=== PATIENT | female | born 1965 | race Caucasian/White ===

== ENCOUNTER 2025-01-03 14:19 | Inpatient (IN) | payer OTHER, SELFPAY ==
[2025-01-03] VITALS (24 sets, daily range): BP systolic 100–153; BP diastolic 60–111; PULSE 80–124; RESP 13–29; TEMP 36.6; O2SAT 96–100; BMI 24.7
--- NOTE | ~2025-01-03 | CT_ITS ---
CT cervical spine wo con Ordering provider: Marcel Souza MD History: . FALLING AND HEAD INJURY . Comparison: None. Technique: CT of the cervical spine was performed without contrast. Sagittal and coronal reformatted images were also obtained and reviewed. Automated exposure control and iterative reconstruction avinash hnique were employed. The dose-length product was 478.53 mGy-cm. FINDINGS: VERTEBRAE: Minimal retrolisthesis at the level of C3-C4. Minimal anterolisthesis at the level of C7-T 1. Postoperative changes at the level of C6-C7. Otherwise, No subluxation or acute fracture. The occi pital condyles are intact. DISC SPACES: Narrowing of the disc C4-C5 and C5-C6. Multilevel facet joint disease. Multilevel uncove rtebral joint osteoarthritic changes. Multilevel intervertebral foraminal narrowing. PARASPINOUS SOFT TISSUES: Normal. IMPRESSION: No acute osseous abnormality cervical spine. Multilevel degenerative disc disease. Reviewed, dictated and finalized at location A.
--- NOTE | ~2025-01-03 | MR_ITS ---
MR brain/brain stem wo/w con Ordering provider: Rosa Maria Vela PA-C History: 59 years Female with . seizure activity . Comparison: CT done yesterday. Technique: MRI brain was performed with and without contrast. 14 mL ProHance was given IV. FINDINGS: BONES: Normal. CRANIOCERVICAL JUNCTION: normal. PITUITARY: Normal. MAJOR INTRACRANIAL VESSELS: Normal flow void. OPTIC NERVES AND CRANIAL NERVES VII AND VIII COMPLEXES: Grossly normal. BRAIN PARENCHYMA AND CSF SPACES: Mild nonspecific T2 white matter hyperintensities which are likely related to chronic ischemic small vessel disease. Mild diffuse cortical atrophy. The brainstem and ce rebellum are normal. No acute or chronic intracranial hemorrhage. No extra axial fluid collections. D iffusion weighted and ADC mapping images reveal minimal effusion restriction in the parasagittal area is which may indicate postictal phase.. No midline shift or mass effect. No enhancing lesions seen. PARANASAL SINUSES: Minimal bilateral ethmoid sinus disease. Otherwise, Normal. MASTOIDS: Normal SUPERFICIAL/SURROUNDING SOFT TISSUES: Large left parieto-occipital scalp hematoma. Otherwise, Normal. IMPRESSION: 1. Possible minimal diffusion restriction in the parasagittal area is which may indicate postictal p hase. Clinical correlation advised. 2. No enhancing lesions seen. 3. Large scalp hematoma in the left parieto-occipital area. Reviewed, dictated and finalized at location A. IMPRESSION: 1. Possible minimal diffusion restriction in the parasagittal area is which ma y indicate postictal phase. Clinical correlation advised. 2. No enhancing lesions seen. 3. Large scalp hematoma in the left parieto-occipital area.
--- NOTE | ~2025-01-03 | XR_ITS ---
XR chest 1V portable Ordering provider: Marcel Souza MD History: 59 years Female with . UNRESPONSIVE . Comparison: None. FINDINGS: MEDIASTINUM: The cardiac silhouette is not enlarged. LUNGS: No infiltrates, effusions or pneumothorax. OTHER: No free air under the diaphragm. Degenerative spine. IMPRESSION: No acute cardiopulmonary pathology. Reviewed, dictated and finalized at location A.
--- NOTE | ~2025-01-03 | CT_ITS ---
CT brain wo con Ordering provider: Marcel Souza MD History: 59 years Female with . HEAD INJURY . Comparison: None. Technique: CT of the head without contrast. Radiation reduction technique utilized.The dose-length pr oduct was 681 mGy-cm. FINDINGS: BRAIN PARENCHYMA AND CSF SPACES: Mild leukoaraiosis and diffuse cortical atrophy. Mild atheromatous d isease. No midline shift, mass effect or hemorrhage. The brain parenchyma and CSF spaces are otherwi se normal. VISUALIZED PARANASAL SINUSES: Well aerated. MASTOIDS: Well aerated. BONES: The bones appear intact. SOFT TISSUES: Visualized nasopharynx is normal. Large left occipital scalp hematoma with postoperati ve changes seen. Otherwise, Superficial soft tissues are normal. IMPRESSION: No acute intracranial findings. Large left occipital scalp hematoma. Reviewed, dictated and finalized at location A.
--- NOTE | 2025-01-03 14:16 | ECG_ITS ---
Test Date: 2025-01-03 15:55:30 Measurements Intervals [place] Rate: 100 P: 63 DE: 170 QRS: 64 QRSD: 107 T: 66 QT: 392 QTc: 507 Interpretive Statements SINUS TACHYCARDIA POSSIBLE RIGHT VENTRICULAR CONDUCTION DELAY [RSR (QR) IN V1/V2] LATERAL MYOCARDIAL INFARCTION ,Age indeterminate [40+ ms Q WAVE AND/OR ST/T ABNORMALITY IN I/aVL/V5/V6] No previous ECG available for comparison Electronically Signed On 01-05-2025 14:56:06 CDT by Kavon Lebron M.D.
--- NOTE | 2025-01-03 14:24 | ED_ITS ---
HPI - Altered Mental Status General Chief Complaint: Trauma Stated Complaint: ?postictal History of Present Illness HPI narrative: PATIENT CAME TO THE ED BY AMBULANCE, BYSTANDER MENTIONED THAT PATIENT HAD A FALL FROM STANDING POSITION LANDED BACKWARD HIT THE BACK OF HER HEAD ON THE GROUND, EMT TELLING ME THAT PATIENT HAVE SOME TREMORS OF THE HANDS, OTHERWISE NO CLEAR HISTORY ABOUT WHAT IS GOING ON, NO SIGNIFICANT OTHERS AT THE BEDSIDE. PATIENT RECEIVED 10 MG OF VERSED IV PRIOR TO ARRIVAL, C-COLLAR ON, EYES OPEN, DOES NOT FOLLOW VERBAL COMMANDS, Related Data Home Medications ?Medication ?Instructions ?Recorded ?Confirmed ?Last Taken ?Type desvenlafaxine succinate 100 mg 100 mg PO DAILY 01/03/25 01/03/25 Unknown History tablet,extended release 24 hr hydroxyzine HCl 50 mg tablet 50 mg PO TID PRN anxiety 01/03/25 01/03/25 Unknown History naltrexone 50 mg tablet 50 mg PO DAILY 01/03/25 01/03/25 Unknown History Allergies Allergy/AdvReac Type Severity Reaction Status Date / Time No Known Allergies Allergy Verified 01/03/25 15:07 Review of Systems 2 Review of Systems: ROS unobtainable: Yes unobtainable due to mental status PMFSH Past Medical History Medical History Anxiety and depression Alcoholism in recovery Surgical History Surgical History History of cervical discectomy History of laparoscopy Social History Social History Social History: Surrogate medical decision maker: Eliceo Reyna, daughter ([phone]) Code status: Full code. Smoking status: Never smoker Alcohol intake: former Substance use: never Do You Feel Safe in your Home?: No Lack of Transportation: No Lack of Food: Never True Current Housing: I Have Housing Concerned About Future Housing: No Difficulty Paying Gas/Electric Bills: No Difficulty Paying for Meds: No Currently Unemployed: No Education: High School Diploma/GED Difficulty w/ Childcare or Family Care: No Spiritual care concerns: No Exam 2 Narrative: GENERAL APPEARANCE: WELL-DEVELOPED, WELL-NOURISHED SKIN: NORMAL COLOR HEAD: LARGE OCCIPITAL HEMATOMA, UNABLE TO IDENTIFY THE SOURCE OF BLEEDING AT THIS TIME NO OBVIOUS LACERATION, MOIST BLOOD, SLIGHTLY OOZING EYES: CLEAR CONJUNCTIVA, RIGHT PUPIL LARGER THAN THE LEFT 1 BOTH ARE REACTIVE TO LIGHT BILATERALLY ENT: OROPHARYNX NORMAL, EARS NORMAL, NOSE NORMAL NECK: C-COLLAR ON CHEST AND RESPIRATORY: AIRWAY PATENT, NO RESPIRATORY DISTRESS, NO ACCESSORY MUSCLE USE HEART: REGULAR RATE/RHYTHM ABDOMEN: SOFT, NONTENDER, NO ORGANOMEGALY, QUIET BOWEL SOUNDS VASCULAR: NORMAL PERIPHERAL PULSES, NORMAL CAPILLARY REFILL. MUSCULOSKELETAL: DOES NOT FOLLOW VERBAL COMMANDS NEUROLOGIC: EYES OPEN, NOT RESPONDING VERBAL COMMANDS Course Vital Signs Vital signs: Vital Signs Pulse Rate 119 H 01/03/25 14:16 Respiratory Rate 20 01/03/25 14:16 Blood Pressure 153/108 H 01/03/25 14:16 Pulse Oximetry 96 01/03/25 14:16 Temperature 36.2 C L 01/06/25 21:34 Pulse Rate 77 01/06/25 21:34 Respiratory Rate 14 01/06/25 21:34 Blood Pressure 137/78 01/06/25 21:34 Pulse Oximetry 98 01/06/25 21:34 Oxygen Delivery Room Air 01/06/25 08:00 Fraction of Inspired Oxygen 21 01/05/25 20:00 Procedures Laceration Laceration 1: Date: 01/03/25 Site: scalp Size (cm): 3 Description: irregular Depth: simple, single layer Local Anesthetic: lidocaine 1% and with epi Amount of anesthesia used (mL): 10 Pre-repair: wound explored, minor debridement and other (8 X 8 CM LARGE HEMATOMA, EVACUATED, LARGE BLOOD CLOTS, SCALP ACHIEVED TO IDENTIFY THE SOURCE OF BLEEDING) ====== Skin Level ====== Skin layer closed with: nylon Size (cm): 4-0 Number of sutures: 3 Technique: simple, interrupted ====== Subcutaneous Layer ====== ====== Muscle Layer ====== ====== Tendon Layer ====== MDM - Altered Mental Status MDM Narrative Medical decision making narrative: PATIENT CAME TO THE ED BY AMBULANCE WITH A FALL, UNRESPONSIVE, OCCIPITAL BLEED AND HEMATOMA VITAL SIGN BLOOD PRESSURE 153/108, HEART RATE 119, OTHERWISE WITHIN NORMAL LIMIT PHYSICAL EXAMINATION SHOWING UNRESPONSIVE PATIENT, EYES OPEN, DOES NOT FOLLOW VERBAL COMMANDS. LARGE OCCIPITAL HEMATOMA WITH POSSIBLE LACERATION BLOOD WORKUP TODAY INCLUDES CBC, CMP,, TROPONIN, CPK SHOWED WBC 11.6, POTASSIUM 3.2, OTHERWISE INSIGNIFICANT URINALYSIS SHOWED NO EVIDENCE OF INFECTION URINE DRUG SCREEN POSITIVE FOR OPIATES AND BENZODIAZEPINES LATER PATIENT BECAME AWAKE, ALERT ORIENTED X4, IS TELLING ME THAT SHE WAS GOING TO WHILE GREEN LOOKING AT HER IPHONE AND THEN DOES NOT REMEMBER WHAT HAPPENED, WAKING UP AT THE EMERGENCY ROOM. PATIENT DENIES ANY SYMPTOMS EXCEPT HEADACHE. PATIENT IS TELLING ME THAT SHE HAD HISTORY OF ALCOHOL ABUSE YEARS AGO, STARTED DRINKING SOCIALLY 2 WEEKS AGO. DIAGNOSIS SYNCOPE OF UNKNOWN ETIOLOGY, SEIZURE IS A POSSIBILITY, OCCIPITAL HEMATOMA/LACERATION, HYPOKALEMIA, DRUG ABUSE. ADMIT TO MED TELE, HOSPITALIST Differential Diagnosis Differential diagnosis: Likely other ( ABOVE) Medical Records Attestation: I reviewed the patient's medical records. Lab Data Attestation: I reviewed the patient's lab results. 01/05/25 05:24 01/05/25 05:24 Labs: Lab Results 01/03/25 01/03/25 01/03/25 Range/Units 15:37 16:04 17:49 WBC 11.6 H (4.5-10.0) K/mm3 RBC 3.69 L (4.2-5.4) M/mm3 Hgb 11.2 L (12.0-15.0) g/dL Hct 34.2 L (37.0-47.0) % MCV 92.7 (80-100) fl MCH 30.4 (26-34) pg MCHC 32.7 (32-36) g/dl RDW 14.0 (11.5-14.5) % Plt Count 217 (150-375) k/mm3 MPV 9.7 (7.4-10.4) fl Immature Gran % (Auto) 0.3 (0-0.5) % Neut % (Auto) 72.7 (45.5-73.1) % Lymph % (Auto) 20.2 (18.3-44.2) % [place] % (Auto) 6.0 (2.6-8.5) % Eos % (Auto) 0.5 (0-4.4) % Baso % (Auto) 0.3 (0.2-1.2) % Lymph # (Auto) 2.34 (0.9-3.2) K/mm3 [place]ie # (Auto) 0.7 H (0.1-0.6) K/mm3 Eos # (Auto) 0.1 (0-0.3) K/mm3 Baso # (Auto) 0.0 (0.0-0.1) K/mm3 Abs Immat Gran (auto) 0.04 H (0.00-0.031) K/mm3 Absolute Neuts (auto) 8.4 H (1.3-6.7) K/mm3 Absolute Nucleated RBC 0.000 (0.0-0.012) K/mm3 Nucleated RBC % 0.0 (0.0-0.2) % Absolute Retic (0.02-0.10) 10^6/uL Percent Retic (0.7-4.3) % Immature Retic Fraction (3.0-15.9) % Retic Hgb Content (28.2-36.6) pg Haptoglobin (43-212) mg/dL PT 13.6 (11.1-14.7) Seconds INR 1.0 APTT 25.7 (22.3-36.8) Seconds Sodium 135 L (137-145) mmol/L Potassium 3.2 L (3.4-5.0) mmol/L Chloride 101 (98-107) mmol/L Carbon Dioxide 24 (22-30) mmol/L Anion Gap 10 (4-12) mmol/L BUN 12 (7-17) mg/dL Creatinine 0.63 L (0.7-1.0) mg/dL Estim Creat Clear Calc 79 ml/min Estimated GFR > 60 (59 - ) Glucose 110 (65-110) mg/dL Calcium 9.2 (8.4-10.2) mg/dL Magnesium (1.6-2.3) mg/dL Iron (37-170) ug/dL TIBC (261-462) ug/dL % Saturation (20-50) % Transferrin (206-381) mg/dL Ferritin (11.1-264) ng/mL Total Bilirubin 0.6 (0.2-1.3) mg/dL Direct Bilirubin (0-0.3) mg/dL AST 34 (14-36) U/L ALT 20 (6-35) U/L Alkaline Phosphatase 71 (38-126) U/L Ammonia Cancelled < 9 L Lactate Dehydrogenase (120-246) U/L Total Creatine Kinase 67 (30-135) U/L Troponin I < 0.012 (0.000-0.034) ng/mL Total Protein 7.0 (6.3-8.2) g/dL Albumin 4.4 (3.5-5.1) g/dL Vitamin B1 Vitamin B6 Vitamin B12 (239-931) pg/mL Vitamin D 25-Hydroxy ng/mL Folate (2.76->20) ng/mL TSH 2.390 (0.465-4.680) uIU/mL TSH (Reflex) (0.465-4.68) uIU/mL Urine Color Yellow (Yellow) Urine Appearance Clear (Clear) Urine pH 5.5 (5.0-9.0) Ur Specific [place] 1.022 (1.001-1.035) Urine Protein 2+ H (Negative) mg/dL Urine Glucose (UA) Negative (Negative) mg/dL Urine Ketones Trace H (Negative) mg/dL Ur Blood (Man) Negative (Negative) Urine Nitrate Negative (Negative) Urine Bilirubin Negative (Negative) Urine Urobilinogen 0.2 (<2.0) mg/dL Add Ur Microanalysis Reviewed Leukocyte Esterase Rfl Negative (Negative) NARA/UL Urine RBC 0-2 (0-2) /hpf Urine WBC 0-5 (0-3) /hpf Ur Squamous Epith Cells None seen (Few) /hpf Urine Bacteria None seen /hpf Urine Casts 6-10 Hyaline Casts Present (None) /lpf Urine Mucus Present /lpf Urine Opiates Screen Positive A (Negative) Urine Methadone Screen Negative (Negative) Ur Barbiturates Screen Negative (Negative) Ur Phencyclidine Scrn Negative (Negative) Ur Amphetamine Screen Negative (Negative) U Benzodiazepines Scrn Positive A (Negative) Urine Cocaine Screen Negative (Negative) U Cannabinoids Screen Negative (Negative) Ethyl Alcohol < 10 (<10) mg/dL RUPERTO, IgG Interpret RUPERTO, Poly Interpret RUPERTO, Complement Interp 01/04/25 01/04/25 01/04/25 Range/Units 06:37 17:09 17:10 WBC 7.0 (4.5-10.0) K/mm3 RBC 2.87 L (4.2-5.4) M/mm3 Hgb 8.8 L (12.0-15.0) g/dL Hct 27.6 L (37.0-47.0) % MCV 96.2 (80-100) fl MCH 30.7 (26-34) pg MCHC 31.9 L (32-36) g/dl RDW 14.5 (11.5-14.5) % Plt Count 184 (150-375) k/mm3 MPV 10.4 (7.4-10.4) fl Immature Gran % (Auto) (0-0.5) % Neut % (Auto) (45.5-73.1) % Lymph % (Auto) (18.3-44.2) % [place] % (Auto) (2.6-8.5) % Eos % (Auto) (0-4.4) % Baso % (Auto) (0.2-1.2) % Lymph # (Auto) (0.9-3.2) K/mm3 [place] # (Auto) (0.1-0.6) K/mm3 Eos # (Auto) (0-0.3) K/mm3 Baso # (Auto) (0.0-0.1) K/mm3 Abs Immat Gran (auto) (0.00-0.031) K/mm3 Absolute Neuts (auto) (1.3-6.7) K/mm3 Absolute Nucleated RBC (0.0-0.012) K/mm3 Nucleated RBC % (0.0-0.2) % Absolute Retic (0.02-0.10) 10^6/uL Percent Retic (0.7-4.3) % Immature Retic Fraction (3.0-15.9) % Retic Hgb Content (28.2-36.6) pg Haptoglobin (43-212) mg/dL PT (11.1-14.7) Seconds INR APTT (22.3-36.8) Seconds Sodium 137 (137-145) mmol/L Potassium 3.9 (3.4-5.0) mmol/L Chloride 107 (98-107) mmol/L Carbon Dioxide 28 (22-30) mmol/L Anion Gap 2 L (4-12) mmol/L BUN 7 D (7-17) mg/dL Creatinine 0.58 L (0.7-1.0) mg/dL Estim Creat Clear Calc 85 ml/min Estimated GFR > 60 (59 - ) Glucose 95 (65-110) mg/dL Calcium 8.7 (8.4-10.2) mg/dL Magnesium 1.6 (1.6-2.3) mg/dL Iron (37-170) ug/dL TIBC (261-462) ug/dL % Saturation (20-50) % Transferrin (206-381) mg/dL Ferritin (11.1-264) ng/mL Total Bilirubin 0.4 (0.2-1.3) mg/dL Direct Bilirubin (0-0.3) mg/dL AST 25 (14-36) U/L ALT 13 (6-35) U/L Alkaline Phosphatase 49 (38-126) U/L Ammonia Lactate Dehydrogenase (120-246) U/L Total Creatine Kinase (30-135) U/L Troponin I (0.000-0.034) ng/mL Total Protein 6.0 L (6.3-8.2) g/dL Albumin 3.3 L (3.5-5.1) g/dL Vitamin B1 Pending Vitamin B6 Pending Vitamin B12 182.0 L (239-931) pg/mL Vitamin D 25-Hydroxy 32.5 ng/mL Folate 14.4 (2.76->20) ng/mL TSH (0.465-4.680) uIU/mL TSH (Reflex) (0.465-4.68) uIU/mL Urine Color (Yellow) Urine Appearance (Clear) Urine pH (5.0-9.0) Ur Specific [place] (1.001-1.035) Urine Protein (Negative) mg/dL Urine Glucose (UA) (Negative) mg/dL Urine Ketones (Negative) mg/dL Ur Blood (Man) (Negative) Urine Nitrate (Negative) Urine Bilirubin (Negative) Urine Urobilinogen (<2.0) mg/dL Add Ur Microanalysis Leukocyte Esterase Rfl (Negative) NARA/UL Urine RBC (0-2) /hpf Urine WBC (0-3) /hpf Ur Squamous Epith Cells (Few) /hpf Urine Bacteria /hpf Urine Casts Hyaline Casts (None) /lpf Urine Mucus /lpf Urine Opiates Screen (Negative) Urine Methadone Screen (Negative) Ur Barbiturates Screen (Negative) Ur Phencyclidine Scrn (Negative) Ur Amphetamine Screen (Negative) U Benzodiazepines Scrn (Negative) Urine Cocaine Screen (Negative) U Cannabinoids Screen (Negative) Ethyl Alcohol (<10) mg/dL RUPERTO, IgG Interpret RUPERTO, Poly Interpret RUPERTO, Complement Interp 05/26/25 05/26/25 Range/Units 05:24 05:24 WBC 7.0 (4.5-10.0) K/mm3 RBC 2.83 L (4.2-5.4) M/mm3 Hgb 8.5 L (12.0-15.0) g/dL Hct 27.4 L (37.0-47.0) % MCV 96.8 (80-100) fl MCH 30.0 (26-34) pg MCHC 31.0 L (32-36) g/dl RDW 14.5 (11.5-14.5) % Plt Count 162 (150-375) k/mm3 MPV 10.0 (7.4-10.4) fl Immature Gran % (Auto) (0-0.5) % Neut % (Auto) (45.5-73.1) % Lymph % (Auto) (18.3-44.2) % [place] % (Auto) (2.6-8.5) % Eos % (Auto) (0-4.4) % Baso % (Auto) (0.2-1.2) % Lymph # (Auto) (0.9-3.2) K/mm3 [place] # (Auto) (0.1-0.6) K/mm3 Eos # (Auto) (0-0.3) K/mm3 Baso # (Auto) (0.0-0.1) K/mm3 Abs Immat Gran (auto) (0.00-0.031) K/mm3 Absolute Neuts (auto) (1.3-6.7) K/mm3 Absolute Nucleated RBC (0.0-0.012) K/mm3 Nucleated RBC % (0.0-0.2) % Absolute Retic 0.10 (0.02-0.10) 10^6/uL Percent Retic 3.46 (0.7-4.3) % Immature Retic Fraction 29.1 H (3.0-15.9) % Retic Hgb Content 35.0 (28.2-36.6) pg Haptoglobin 130 (43-212) mg/dL PT (11.1-14.7) Seconds INR APTT (22.3-36.8) Seconds Sodium 137 (137-145) mmol/L Potassium 3.7 (3.4-5.0) mmol/L Chloride 107 (98-107) mmol/L Carbon Dioxide 25 (22-30) mmol/L Anion Gap 5 (4-12) mmol/L BUN 4 L (7-17) mg/dL Creatinine 0.48 L (0.7-1.0) mg/dL Estim Creat Clear Calc 101 ml/min Estimated GFR > 60 (59 - ) Glucose 98 (65-110) mg/dL Calcium 8.5 (8.4-10.2) mg/dL Magnesium (1.6-2.3) mg/dL Iron 38 (37-170) ug/dL TIBC 258 L (261-462) ug/dL % Saturation 15 L (20-50) % Transferrin 174 L (206-381) mg/dL Ferritin 107.00 (11.1-264) ng/mL Total Bilirubin 0.2 0.2 (0.2-1.3) mg/dL Direct Bilirubin 0.0 (0-0.3) mg/dL AST 22 (14-36) U/L ALT 13 (6-35) U/L Alkaline Phosphatase 50 (38-126) U/L Ammonia Lactate Dehydrogenase 145 (120-246) U/L Total Creatine Kinase (30-135) U/L Troponin I (0.000-0.034) ng/mL Total Protein 6.0 L (6.3-8.2) g/dL Albumin 3.2 L (3.5-5.1) g/dL Vitamin B1 Vitamin B6 Vitamin B12 (239-931) pg/mL Vitamin D 25-Hydroxy ng/mL Folate (2.76->20) ng/mL TSH (0.465-4.680) uIU/mL TSH (Reflex) 2.710 (0.465-4.68) uIU/mL Urine Color (Yellow) Urine Appearance (Clear) Urine pH (5.0-9.0) Ur Specific [place] (1.001-1.035) Urine Protein (Negative) mg/dL Urine Glucose (UA) (Negative) mg/dL Urine Ketones (Negative) mg/dL Ur Blood (Man) (Negative) Urine Nitrate (Negative) Urine Bilirubin (Negative) Urine Urobilinogen (<2.0) mg/dL Add Ur Microanalysis Leukocyte Esterase Rfl (Negative) NARA/UL Urine RBC (0-2) /hpf Urine WBC (0-3) /hpf Ur Squamous Epith Cells (Few) /hpf Urine Bacteria /hpf Urine Casts Hyaline Casts (None) /lpf Urine Mucus /lpf Urine Opiates Screen (Negative) Urine Methadone Screen (Negative) Ur Barbiturates Screen (Negative) Ur Phencyclidine Scrn (Negative) Ur Amphetamine Screen (Negative) U Benzodiazepines Scrn (Negative) Urine Cocaine Screen (Negative) U Cannabinoids Screen (Negative) Ethyl Alcohol (<10) mg/dL RUPERTO, IgG Interpret TNP RUPERTO, Poly Interpret Negative RUPERTO, Complement Interp TNP ABG Data ABG results: 01/03/25 14:58 Puncture Site Right brachial ABG pH 7.439 ABG pCO2 35.1 ABG pO2 63.5 L ABG PO2/FiO2 Ratio 3.02 ABG HCO3 23.3 ABG O2 Saturation 93.2 L ABG O2 Content 15.0 L ABG Base Excess -0.5 A-a Gradient 44.2 Oxyhemoglobin 91.6 Total Hemoglobin 11.6 L O2 Delivery Device Room air O2 Liters/Min 0.0 FiO2 21 Imaging Data Radiologist's impression: Impressions Head CT 01/03/25 15:01 IMPRESSION: No acute intracranial findings. Large left occipital scalp hematoma. Chest X-Ray 01/03/25 15:20 IMPRESSION: No acute cardiopulmonary pathology. Cervical Spine CT 01/03/25 15:25 IMPRESSION: No acute osseous abnormality cervical spine. Multilevel degenerative disc disease. ECG Data EKG #1: Attestation: I personally reviewed and interpreted this ECG as follows: ECG completion date: 01/03/25 Critical Care Time Critical Care Time Critical Care Time: Yes Total Critical Care Time: 60 Discharge Plan Discharge Clinical Impression: Syncope, Acute hypokalemia, Laceration of scalp, Drug abuse Patient Disposition: Still a Patient Condition: Improved
--- OUTSIDE RECORDS SUMMARY | 2025-01-03 14:37 | XMS_ITS | Clinical Summary ---
Author Organization [facility] Address [address] [place] [id number] Care Team Providers Care Pullman Clerk Name Role Phone Unknown, Notinfile Primary Care Provider Unavail able Allergies No known active allergies Medications desvenlafaxine ER 50 mg 24 hr tablet Take 1 tablet (50 mg total) by mouth daily 09/05/2024 Active losartan (COZAAR) 50 mg tablet Take 1 tablet (50 mg total) by mouth daily 30 tablet 10/02/2024 Active LORazepam (ATIVAN) 0.5 mg tablet Take 1 tablet (0.5 mg total) by mouth every 6 (six) hours as needed for anxiety for up to 7 days 20 tablet 10/01/2024 Active Active Problems Problem Noted Date Diagnosed Date Acute cystitis with hematuria 09/30/2024 Alcohol use disorder 09/27/2024 Alcohol withdrawal syndrome without complication 09/27/2024 Immunizations Immunization Administration Dates Next Due Influenza, Trivalent, Preservative Free, Intramu scular 09/27/2024 Social History Tobacco Use Types Packs/Day Years Used Date Smoking Tobacco: Never Passive Smoke Exposure: Never Smokeless Tobacco: Never Tobacco Cessation:Counseling Given: No [facility] Utilities Answer Date Recorded In the past 12 months has [employer], gas, oil, or water [employer] threatened to shut off services in your home? No 09/29/2024 Social Connection and Isolat ion Panel [NHANES] Answer Date Recorded In a typical week, how many times do you talk on the phone with family, friends, or neighbors? More than three times a week 09/29/2024 How often do you get togethe r with friends or relatives? More than three times a week 09/29/2024 How often do you attend chur ch or mosque services? Never 09/29/2024 Do you belong to any clubs o r organizations such as baptism groups, unions, fraternal or athletic groups, or school groups? No 09/29/2024 How often do you attend meet ings of the clubs or organizations you belong to? Never 09/29/2024 Are you , , di vorced, , never , or living with a partner? Never 09/29/2024 Overall Financial Resource Strain (CARDIA) Answe r Date Recorded How hard is it for you to pa y for the very basics like food, housing, medical care, and heating? Not hard at all 09/29/2024 Hunger Vital Sign Answer Date Recorded Within the past 12 months, y ou worried that your food would run out before you got the money to buy more. Never true 09/29/19 25 Within the past 12 months, t he food you bought just didn't last and you didn't have money to get more. Never true 09/29/2024 PRAPARE - Transportation Answer Date Re corded In the past 12 months, has l ack of transportation kept you from medical appointments or from getting medications? No 09/13 In the past 12 months, has l ack of transportation kept you from meetings, work, or from getting things needed for daily living? No 09/29/2024 Housing Stability Vital Sign Answer Lalo e Recorded In the last 12 months, was t here a time when you were not able to pay the mortgage or rent on time? No 09/29/2024 In the past 12 months, how m any times have you moved where you were living? 0 09/29/2024 At any time in the past 12 m [facility], were you homeless or living in a chcf (including now)? No 09/29/2024 Personal Safety Answer Date Recorded Have you ever been in or are you currently in a harmful physical or emotional relationship or is someone making you feel afraid or unsafe? Denies 09/27/2024 Comments No Sex and Gender Information Value Date Recorded Sex Assigned at Not on file Legal Sex Female 9:42 AM [employer] Gender Identity Not on file Sexual Orientation Not on file Obstetrics History Last Filed Vital Signs Vital Sign Reading Time Taken Comments Blood Pressure 139/90 10/02/2024 7:24 AM [employer]ELD [employer] Pulse 92 10/02/2024 7:24 AM [employer] Temperature 36.5 C (97.7 F) 10/02/2024 7:24 AM [employer] Respiratory Rate 18 10/02/2024 7:24 AM [employer]IELD [employer]NER Oxygen Saturation 95% 10/02/2024 7:24 AM [employer]ELD [employer]NER Inhaled Oxygen Concentration - - Weight 68.4 kg (150 lb 12.7 oz) 09/27/2024 2:45 PM [employer]IELD [employer]NER Height 170.1 cm (5' 6.97) 09/27/2024 2:45 PM CS T Body Mass Index 23.64 09/27/2024 2:45 PM [employer]ELD [employer] Plan of Treatment Health Maintenance Due Date Last Done Comments Breast Cancer Screening-Mammogram 1965 Cervical Cancer Screening 1965 Colon Cancer Screening-Colonoscopy 1965 Depression Screening 1965 DTaP/Tdap/Td Vaccine (1 - Tdap) 01/17/1975 Hepatitis B Screening 01/17/1982 Regular Well Visit/Exam 18-64 01/17/1982 Pneumococcal vaccine <65 (1 of 2 - PCV) 01/17/1983 Zoster Vaccine (1 of 2) 01/17/2014 Hepatitis C Screening Completed 09/27/2024 Influenza Vaccine Completed 09/27/2024 Procedures Procedure Name Priority Date/Time Associated Diagnosis Comments HEPATITIS PANEL, ACUTE Routine 09/27/2024 4:43 PM [employer]ELD [employer]NER from Last 3 Months or Most Recently Relevant to Health Maintenance Results * Hepatitis panel, acute Blood (09/27/2024 4:43 PM [employer]IELD [employer]NER) Hep A IgM Nonreactive Nonreactive Comment: Interpretive Data: If Hep A IgM Ab is reported as Equivocal, a new sample should be drawn in two weeks for testing. Current interpretive data was last revised on 19. Hep B core IgM Nonreactive Nonreactive [facility]ODIE Comment: Interpretive Data If HepB Core IgM Ab is reported as Equivocal, a new sample should be drawn in two weeks for testing. Current interpretive data was last revised on 19. Hep C Ab Nonreactive Nonreactive [facility] Comment: Antibodies to HCV not detected. Does NOT exclude the possibility of recent exposure to HCV. Current interpretive data was last revised on 22 Interpretive Data Nonreactive: Antibodies to HCV not detected. Does NOT exclude the possibility of recent exposure to HCV. Equivocal: Equivocal for HCV antibodies. Supplemental molecular testing will be automatically performed to determine infection status in accordance with current CDC screening recommendations. Reactive: Positive for HCV antibodies. This may represent current or past HCV infection. Supplemental molecular testing will be automatically performed to determine current infection status in accordance with current CDC screening recommendations. Interpretive data was last revised on 2019. HepBsAg Nonreactive Nonreactive [facility] Blood 09/27/2024 4:43 PM SHIELD [employer]NER 09/27/2024 5:00 PM [employer]IELD [employer]NER Lynn Hayes NP LAB MICROBIOLOGY - GENERAL OR DERABLES Final Result [facility] [address] [facility] Department [place] [address] from Last 3 Months or Most Recently Relevant to Health Maintenance Insurance [employer] Advance Directives For more information, please contact: [phone] * Full Code (Latest Code Status on File) Date Activated Date Inactivated Comments 09/27/2024 2:38 PM 10/02/2024 12:56 PM Care Teams Pullman Clerk Relationship Specialty Start Date End Date Unknown, Notinfile PCP - General 09/27/24
--- OUTSIDE RECORDS SUMMARY | 2025-01-03 14:37 | XMS_ITS | Referral Summary ---
Author Organization [facility] Address [facility] [place] [address] Care Team Providers Care Green Marketing Specialist Name Role Phone Unknown, Notinfile Primary Care [...] Smokeless Tobacco: Never Tobacco Cessation:Counseling Given: No [facility] Utilities Answer Date Recorded In the past 12 months has [employer], gas, oil, or water [employer] threatened to shut off services in your [...] often do you attend chur ch or cheondoism services? Never 09/29/2024 Do you belong to any clubs o r organizations such as judaism groups, unions, fraternal or athletic groups, or [...] any time in the past 12 m [facility], were you homeless or living in a fci (including now)? No 09/29/2024 Personal Safety Answer Date Recorded Have you ever been in or are you currently in a harmful physical or emotional relationship or is someone making you feel afraid or unsafe? Denies 09/27/2024 Comments No Sex and Gender Information Value Date Recorded Sex Assigned at Not on file Legal Sex Female 9:42 AM [facility] Gender Identity Not on file Sexual Orientation Not on file Last Filed Vital Signs Vital Sign Reading Time Taken Comments Blood Pressure 139/90 10/02/2024 7:24 AM T[facility]OWER Pulse 92 10/02/2024 7:24 AM [facility] Temperature 36.5 C (97.7 F) 10/02/2024 7:24 AM [facility]OWER Respiratory Rate 18 10/02/2024 7:24 AM [facility]OWER Oxygen Saturation 95% 10/02/2024 7:24 AM [facility] Inhaled Oxygen Concentration - - Weight 68.4 kg (150 lb 12.7 oz) 09/27/2024 2:45 PM [facility] Height 170.1 cm (5' 6.97) 09/27/2024 2:45 PM CS T Body Mass Index 23.64 09/27/2024 2:45 PM [facility] Plan of Treatment Not on file Procedures Procedure Name Priority Date/Time Associated Diagnosis Comments HEPATITIS PANEL, ACUTE Routine 09/27/2024 4:43 PM T[facility] from Last 3 Months or Most Recently Relevant to Health Maintenance Results * Hepatitis panel, acute Blood (09/27/2024 4:43 PM [facility]) Hep A IgM Nonreactive Nonreactive Comment: Interpretive Data: If Hep A IgM Ab is reported as Equivocal, a new sample should be drawn in two weeks for testing. Current interpretive data was last revised on 19. Hep B core IgM Nonreactive Nonreactive [facility] Comment: Interpretive Data If HepB Core IgM Ab is reported as Equivocal, a new sample should be drawn in two weeks for testing. Current interpretive data was last revised on 19. Hep C Ab Nonreactive Nonreactive [facility] Comment: Antibodies to HCV not detected. Does [...] last revised on 2019. HepBsAg Nonreactive Nonreactive JODIE PADILLA Blood 09/27/2024 4:43 PM [facility] 09/27/2024 5:00 PM T[facility] us Lynn Hayes NP LAB MICROBIOLOGY - GENERAL OR DERABLES Final Result JODIE PADILLA [address] [facility] Department [place] [address] from Last 3 Months or Most Recently Relevant to Health Maintenance Insurance [facility] Advance Directives For more information, please contact: [phone] * Full Code (Latest Code Status on File) Date Activated Date Inactivated Comments 09/27/2024 2:38 PM 10/02/2024 12:56 PM Care Teams Green Marketing Specialist Relationship Specialty Start Date End Date Unknown, Notinfile PCP - General 09/27/24
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
--- NOTE | 2025-01-03 14:49 | PCRCNOTE ---
Arrived to do the ABG about 1430 and the wanted the Pt. to go to CT first.
--- NOTE | 2025-01-03 14:55 | PC.NURSE ---
patient states she has had a few seizures in the past, and does not take anything for them. pt states she was walking and looking for [facility]. and remembers asking someone for directions who was cutting her grass. pt does not remember anything after that. patient was talking during ct scan, and does not remember anything short term
[2025-01-03 15:04] LABS: Alveolar/Arterial O2 Gradient 44.2 mmHg; Base Excess ABG -0.5 mEq/l (+/-2.0); Fractional Inspired Oxygen 21 %; HCO3 ABG 23.3 mEq/l (22.0-26.0); Oxygen Saturation ABG 93.2 % (95.0-100.0); Oxyhemoglobin 91.6 % THb (90.0-100.0); PCO2 ABG 35.1 mmHg (35.0-45.0); PO2 ABG 63.5 mmHg (80.0-100.0); PO2 FiO2 Ratio Arterial Blood 3.02 %; Total Hemoglobin 11.6 g/dL (12.0-18.0); pH ABG 7.439 (7.350-7.450)
[2025-01-03 15:05] LABS: Site Drawn RIGHT BRACHIAL
[2025-01-03 15:06] LABS: Device ROOM AIR
--- NOTE | 2025-01-03 15:41 | PC.NURSE ---
patient right pupil sluggish and larger than the left pupil. patient states she hasn't been able to see out of that eye since may, but that they've said it's reactive to light appropriately prior to today Dr Souza aware. and assessed the patients pupils
[2025-01-03 15:49] LABS: Basophils Percent Auto 0.3 % (0.2-1.2); Eosinophils Absolute Auto 0.1 K/mm3 (0-0.3); Eosinophils Percent Auto 0.5 % (0-4.4); Hematocrit 34.2 % (37.0-47.0); Hemoglobin 11.2 g/dL (12.0-15.0); Immature Granulocyte Absolute 0.04 K/mm3 (0.00-0.031); Immature Granulocyte Percent A 0.3 % (0-0.5); Lymphocytes Absolute Auto 2.34 K/mm3 (0.9-3.2); Lymphocytes Percent Auto 20.2 % (18.3-44.2); Mean Corpuscular HGB Conc 32.7 g/dl (32-36); Mean Corpuscular Hemoglobin 30.4 pg (26-34); Mean Corpuscular Volume 92.7 fl (80-100); Mean Platelet Volume 9.7 fl (7.4-10.4); Monocytes Absolute Auto 0.7 K/mm3 (0.1-0.6); Neutrophils Absolute Auto 8.4 K/mm3 (1.3-6.7); Neutrophils Percent Auto 72.7 % (45.5-73.1); Platelet Count Result 217 k/mm3 (150-375); Red Blood Count 3.69 M/mm3 (4.2-5.4); White Blood Count 11.6 K/mm3 (4.5-10.0)
[2025-01-03 16:03] LABS: Prothrombin Time 13.6 Seconds (11.1-14.7)
[2025-01-03 16:04] LABS: Partial Thromboplastin Time 25.7 Seconds (22.3-36.8)
[2025-01-03 16:10] LABS: Alanine Aminotransferase 20 U/L (6-35); Albumin Level 4.4 g/dL (3.5-5.1); Alkaline Phosphatase 71 U/L (38-126); Anion Gap 10 mmol/L (4-12); Aspartate Amino Transferase 34 U/L (14-36); Bilirubin,Total 0.6 mg/dL (0.2-1.3); Blood Urea Nitrogen 12 mg/dL (7-17); Calcium 9.2 mg/dL (8.4-10.2); Carbon Dioxide 24 mmol/L (22-30); Chloride 101 mmol/L (98-107); Creatine Kinase 67 U/L (30-135); Estimated CRCL calculation 79 ml/min; Estimated Glomerular Filt Rate > 60; Glucose 110 mg/dL (65-110); Potassium 3.2 mmol/L (3.4-5.0); Sodium 135 mmol/L (137-145)
[2025-01-03 16:23] LABS: Troponin I < 0.012 ng/mL (0.000-0.034)
[2025-01-03 16:25] LABS: Add Urine Microscopic? YES; Appearance Urine Clear (Clear); Bacteria Urine None Seen /hpf; Bilirubin Urine Negative (Negative); Blood Urine Negative (Negative); Color Urine Yellow (Yellow); Glucose Urine UA Negative (Negative); Hyaline Casts Urine Present /lpf; Ketones Urine Trace mg/dL (Negative); Leukocyte Esterase Ur Negative LEU/UL (Negative); Mucus Urine Present /lpf; Need Manual Microscopic Reviewed; Nitrate Urine Negative (Negative); Protein Urine 2+ mg/dL (Negative); RBC Urine 0-2 /hpf (0-2); Specific Grav Ur 1.022 (1.001-1.035); Squamous Epithelial Cell Urine None Seen /hpf (Few); Urobilinogen Urine 0.2 mg/dL (<2.0); WBC Urine 0-5 /hpf (0-3); pH Urine 5.5 (5.0-9.0)
[2025-01-03 16:36] LABS: Amphetamine Screen Urine Negative (Negative); Barbiturate Screen Urine Negative (Negative); Benzodiazepines Screen Urine Positive (Negative); Cannabinoid Screen Urine Negative (Negative); Cocaine Screen Urine Negative (Negative); Methadone Screen Urine Negative (Negative); Opiate Screen Urine Positive (Negative); Phencyclidine Screen Urine Negative (Negative)
[2025-01-03] MEDS: MORPHINE SULFATE (*CRX) 4 MG/ML INJ IV PUSH (16:43)
[2025-01-03] MEDS: SODIUM CHLORIDE 0.9% IV 1,000 ML 100 ML IV CONT (16:44)
[2025-01-03] MEDS: ONDANSETRON INJ 4 MG/2 ML VIAL IV PUSH (16:44)
[2025-01-03 17:47] LABS: Ethanol < 10 mg/dL (<10)
[2025-01-03 18:03] LABS: Ammonia < 9 umol/L (9-30)
[2025-01-03] MEDS: CEPHALEXIN 500 MG CAPSULE PO ×2 (18:03→23:19)
[2025-01-03] MEDS: TETANUS,DIPHTHERIA,AC PERTUSSIS ADULT (0.5 ML) BOOSTRIX IM (18:03)
[2025-01-03] MEDS: POTASSIUM CHLORIDE 20 MEQ PACKET (FOR LIQUID) 40 MEQ PO (18:03)
[2025-01-03] MEDS: SODIUM CHLORIDE 0.9% IV 1,000 ML 999 ML IV CONT (18:03)
--- NOTE | 2025-01-03 18:17 | PC.NURSE ---
when patient arrived to ED YUNIOR khalil stapled the wound to attempt to stop bleeding to get the patient to cat scan. 7 phillip were placed, and guaze placed to help with bleeding control. patients hair was shaved to find source of bleeding with dr álvarez at bedside removing phillip, evacuating hematoma. morphine and zofran given see MAR, lidocaine with Epi used and 3-0 etholon three stitches placed. patient tolerated well.
--- NOTE | 2025-01-03 18:23 | PC.NURSE ---
catheter removed at this time
[2025-01-03] MEDS: SODIUM CHLORIDE 0.9% IV 1,000 ML 125 ML IV CONT (19:45)
--- NOTE | 2025-01-03 21:30 | PM.IMHP ---
H&P: HPI History of Present Illness Date/Time: 01/03/25 21:30 Chief Complaint: Unresponsive. Narrative: This is a very pleasant 59-year-old female with history of alcohol abuse (sober since August 2024 with 1 day of relapse last Sunday), depression, and anxiety who presented to the emergency department via EMS for evaluation after she was found unresponsive. She felt fine when she got up this morning and this afternoon she decided to walk to a local store to get some supplies. The last thing she remembers is talking to a friend that she had seen while walking. Bystanders report that she fell backwards onto the sidewalk and reportedly exhibited some tremors and shakes concerning for seizures. She was unresponsive for a period of time and EMS was summoned. She believes that she remembers some of the time that she was in the ambulance but she does not remember much in the ER and does not even remember having her CT scans. She thinks that she had a seizure many years ago, possibly related to alcohol withdrawal, but has no known history of seizure disorder. She does not recall having any antecedent symptoms prior to this episode and specifically denies feelings of lightheadedness, dizziness, chest pain, palpitations, shortness of breath, lower extremity edema, and calf pain. She was not incontinent of urine or bowel but thinks that she bit her tongue. She also denies vertigo, visual changes (she has loss of vision in the right eye from a fall and apparent facial fractures last year), facial droop, difficulty speaking and swallowing, focal weakness, and paresthesias. At the time my evaluation she complains of throbbing pain in the back of her head at the site of a large contusion and laceration as well as pain on the left side of her tongue. As above, she has been sober since August but admits that she drink a bottle of wine last Sunday though she has been back on her naltrexone and is going to AA meetings. She denies substance abuse and specifically denies taking opiates and benzodiazepines which were noted to be positive in her drug screen. In the ED: Documented vital signs on arrival include a blood pressure 146/84, pulse 107, respiratory rate 20. Labs are significant for WBC count of 11.6, hemoglobin 11.2, sodium 135, potassium 3.2, troponin less than 0.012. Urinalysis was positive for 2+ protein trace ketones. Drug screen was positive for opiates and benzodiazepines. Ethyl alcohol level was negative. Head CT showed no acute intracranial findings but did show a large left occipital scalp hematoma. Cervical spine CT showed no acute abnormalities and noted multilevel degenerative disc disease. Chest x-ray was without acute findings. Scalp laceration was sutured in the ED and her started on cephalexin after receiving a tetanus booster. She received 1 L of normal saline and 40 mEq of potassium chloride. She is being admitted in this setting for further treatment and evaluation. Review of Systems Review of Systems: 12 systems were reviewed and are negative except for as per HPI. [facility] Past Medical History Medical History Anxiety and depression Alcoholism in recovery Surgical History Surgical History (Updated 01/03/25 @ 23:56 by Rosa Maria Vela PA-C) History of cervical discectomy History of laparoscopy Social History Social History (Updated 01/03/25 @ 23:57 by Rosa Maria Vela PA-C) Social History: Surrogate medical decision maker: Eliceo Reyna, daughter ([phone]) Code status: Full code. Smoking status: Never smoker Alcohol intake: former Substance use: never Do You Feel Safe in your Home?: No Lack of Transportation: No Lack of Food: Never True Current Housing: I Have Housing Concerned About Future Housing: No Difficulty Paying Gas/Electric Bills: No Difficulty Paying for Meds: No Currently Unemployed: No Education: High School Diploma/GED Difficulty w/ Childcare or Family Care: No Spiritual care concerns: No Meds Home Medications and Allergies Home Medications ?Medication ?Instructions ?Recorded ?Confirmed ?Type desvenlafaxine succinate 100 mg 100 mg PO DAILY 01/03/25 01/03/25 History tablet,extended release 24 hr hydroxyzine HCl 50 mg tablet 50 mg PO TID PRN anxiety 01/03/25 01/03/25 History naltrexone 50 mg tablet 50 mg PO DAILY 01/03/25 01/03/25 History Allergies Allergy/AdvReac Type Severity Reaction Status Date / Time No Known Allergies Allergy Verified 01/03/25 15:07 Vital Signs Vital Signs - 24 hr 01/03/25 14:16 01/03/25 15:43 01/03/25 15:44 Temperature Pulse Rate 119 H 107 H 107 H Respiratory Rate 20 21 H 20 Blood Pressure 153/108 H 146/84 H Pulse Oximetry 96 01/03/25 15:45 01/03/25 15:46 01/03/25 15:47 Temperature Pulse Rate 105 H 104 H 105 H Respiratory Rate 16 21 H 21 H Blood Pressure 133/79 Pulse Oximetry 01/03/25 16:00 01/03/25 16:01 01/03/25 16:15 Temperature Pulse Rate 101 H 105 H 124 H Respiratory Rate 20 17 18 Blood Pressure 131/79 Pulse Oximetry 01/03/25 16:17 01/03/25 16:30 01/03/25 16:31 Temperature Pulse Rate 104 H 91 96 Respiratory Rate 23 H 21 H 29 H Blood Pressure 100/87 101/60 Pulse Oximetry 01/03/25 17:06 01/03/25 17:15 01/03/25 17:17 Temperature Pulse Rate 103 H 95 93 Respiratory Rate 28 H 17 16 Blood Pressure 138/73 Pulse Oximetry 01/03/25 17:30 01/03/25 17:31 01/03/25 18:16 Temperature Pulse Rate 98 98 Respiratory Rate 13 14 Blood Pressure 137/80 124/111 H Pulse Oximetry 01/03/25 18:18 01/03/25 18:30 01/03/25 18:31 Temperature Pulse Rate 96 Respiratory Rate Blood Pressure 109/79 Pulse Oximetry 97 96 01/03/25 20:00 01/03/25 20:35 Temperature 97.8 F 97.8 F Pulse Rate 80 80 Respiratory Rate 16 16 Blood Pressure 133/67 133/67 Pulse Oximetry 100 100 Exam Narrative: General: Well-developed, nontoxic-appearing female in the semi-Bryant position in bed in no distress. Weight: 71.6 kg. BMI: 24.7. HEENT: Hematoma and laceration on the posterior left scalp. Wound has been sutured. There is dry blood around the wound. PERRL, EOMI. Sclera anicteric. Conjunctiva mildly injected. Moist mucous membranes. Left side of the tongue has mild bruising and some swelling. Neck: Supple. No midline vertebral tenderness. Respiratory: Lungs are clear to auscultation bilaterally. Cardiovascular: Regular rate and rhythm with S1-S2. Gastrointestinal: Abdomen is soft, nontender, and nondistended with positive bowel sounds. Skin: Warm and dry. Bruise on the right scapula. Extremities: No cyanosis, clubbing, or edema. Radial and pedal pulses intact. Neurological: Alert and oriented. Cranial nerves 2-12 are grossly intact. Speech is clear. No facial asymmetry. No gross focal deficits to casual conversation. Psychiatric: Pleasant and cooperative with appropriate mood and affect. H&P: Results Labs Labs: Short CBC 01/03/25 Range/Units 15:37 WBC 11.6 H (4.5-10.0) K/mm3 Hgb 11.2 L (12.0-15.0) g/dL Hct 34.2 L (37.0-47.0) % Plt Count 217 (150-375) k/mm3 BMP 01/03/25 15:37 Sodium 135 L Potassium 3.2 L Chloride 101 Carbon Dioxide 24 BUN 12 Creatinine 0.63 L Glucose 110 Calcium 9.2 Cardiac Enzymes 01/03/25 Range/Units 15:37 Total Creatine Kinase 67 (30-135) U/L Troponin I < 0.012 (0.000-0.034) ng/mL Liver Function 01/03/25 Range/Units 15:37 Total Bilirubin 0.6 (0.2-1.3) mg/dL AST 34 (14-36) U/L ALT 20 (6-35) U/L Alkaline Phosphatase 71 (38-126) U/L Albumin 4.4 (3.5-5.1) g/dL Urine 01/03/25 Range/Units 16:04 Urine Color Yellow (Yellow) Urine Appearance Clear (Clear) Urine pH 5.5 (5.0-9.0) Ur Specific [place] 1.022 (1.001-1.035) Urine Protein 2+ H (Negative) mg/dL Urine Glucose (UA) Negative (Negative) mg/dL Imaging Head CT 01/03/25 15:01 IMPRESSION: 1. No acute intracranial findings. 2. Large left occipital scalp hematoma. Chest X-Ray 01/03/25 15:20 IMPRESSION: 1. No acute cardiopulmonary pathology. Cervical Spine CT 01/03/25 15:25 IMPRESSION: 1. No acute osseous abnormality cervical spine. 2. Multilevel degenerative disc disease. Assessment and Plan Assessment and plan (1) Seizure: Code(s): R56.9 - Unspecified convulsions Status: Acute (2) Hypokalemia: Code(s): E87.6 - Hypokalemia Status: Acute (3) Anxiety and depression: Code(s): F41.9 - Anxiety disorder, unspecified; F32.A - Depression, unspecified Status: Acute Plan The patient presented to the emergency department for evaluation after she was found unresponsive exhibiting possible seizure-like activity as detailed in HPI. Labs, imaging, EKG, and all reports were personally reviewed. It does sound as though she may have had a seizure as it sounds as though she was postictal and there is evidence of tongue bite on examination. Etiology is not entirely clear however. She has been sober since August in reports having 1 bottle of wine last Sunday and is unlikely that this would be related to alcohol withdrawal. Urine drug screen is positive for benzodiazepines which she adamantly denies using. She has not been started on any new medications recently. She will be monitored on telemetry overnight. Brain MRI, EEG, and echocardiogram have been ordered. Neurology consulted for further recommendations. Potassium will be replaced and monitored. Her home medications will be reviewed and resumed as appropriate. Findings and treatment plan were discussed with the patient. Questions were solicited and answered to satisfaction. The patient's medical management will be taken over by the hospitalist team in a.m. Quality VTE Prophylaxis VTE prophylaxis: mechanical ordered If No VTE Prophylaxis Answer both mechanical and pharmacologic: Reason no pharmacologic proph: medical contraindication (fall risk) The patient has been admitted under observation status. Hospitalist [facility] Advance Care Plan I have confirmed that the patient's Advanced Care Plan is present, code status is documented, or surrogate decision maker is listed in patient medical record.: Yes Medication Reconciliation I have utilized all available resources to obtain, update and review the patients current medications (includes all prescriptions, OTC, herbals, cannabis, and nutritional supplements).: Yes
[2025-01-03] MEDS: ACETAMINOPHEN 325 MG TABLET 650 MG PO (21:50)
--- NOTE | 2025-01-03 22:10 | ADMGEN ---
This patient, Madhavi Clark, was admitted to [address] [place] [address] Room 304-02. Patient/family oriented to hospital policies and general routines including ID bracelet, bed and alarms, visiting hours, pain management, procedures, bathroom and other care routines, personal items, smoking policy, room service/diet, and visiting hours. Information on how to activate the Rapid Response Team has been discussed. Patient/Family are encouraged to report perceived risks to care and to ask questions if they do not understand what they are told or what they should do.
[2025-01-03] MEDS: MORPHINE SULFATE (*CRX) 2 MG/ML INJ IV PUSH (23:19)
[2025-01-04] VITALS (12 sets, daily range): BP systolic 112–144; BP diastolic 62–85; PULSE 74–94; RESP 12–18; TEMP 36.1–36.3; O2SAT 91–100
[2025-01-04] MEDS: SODIUM CHLORIDE 0.9% IV 1,000 ML 125 ML IV CONT ×3 (02:36→19:56)
[2025-01-04] MEDS: CEPHALEXIN 500 MG CAPSULE PO ×4 (05:19→23:54)
[2025-01-04 06:54] LABS: Hematocrit 27.6 % (37.0-47.0); Hemoglobin 8.8 g/dL (12.0-15.0); Mean Corpuscular HGB Conc 31.9 g/dl (32-36); Mean Corpuscular Hemoglobin 30.7 pg (26-34); Mean Corpuscular Volume 96.2 fl (80-100); Mean Platelet Volume 10.4 fl (7.4-10.4); Platelet Count Result 184 k/mm3 (150-375); Red Blood Count 2.87 M/mm3 (4.2-5.4); Red Cell Distribution Width 14.5 % (11.5-14.5)
[2025-01-04 07:03] LABS: Alanine Aminotransferase 13 U/L (6-35); Albumin Level 3.3 g/dL (3.5-5.1); Alkaline Phosphatase 49 U/L (38-126); Anion Gap 2 mmol/L (4-12); Aspartate Amino Transferase 25 U/L (14-36); Bilirubin,Total 0.4 mg/dL (0.2-1.3); Blood Urea Nitrogen 7 mg/dL (7-17); Calcium 8.7 mg/dL (8.4-10.2); Carbon Dioxide 28 mmol/L (22-30); Chloride 107 mmol/L (98-107); Estimated CRCL calculation 85 ml/min; Estimated Glomerular Filt Rate > 60; Glucose 95 mg/dL (65-110); Potassium 3.9 mmol/L (3.4-5.0); Sodium 137 mmol/L (137-145)
--- NOTE | 2025-01-04 08:42 | P.PNIM_ITS ---
Progress Note: A&P Assessment and Plan (1) Seizure: Code(s): R56.9 - Unspecified convulsions Status: Acute Assessment and Plan: Unprovoked seizure Neuro check q.4 hours Brain MRI EEG Echocardiogram No evidence of hypoglycemia Chronic alcoholism No evidence of electrolyte abnormality Seizure precaution Neurology consult (2) Hypokalemia: Code(s): E87.6 - Hypokalemia Status: Acute Assessment and Plan: Replenish (3) Anxiety and depression: Code(s): F41.9 - Anxiety disorder, unspecified; F32.A - Depression, unspecified Status: Acute Assessment and Plan: Continue home medication Subjective Date/time seen: 01/04/25 08:42 Interval history: Patient is admitted in the setting of alcohol and seizures. Neurology is consulted. Pending EEG. During the evaluation patient reports that she had multiple falls due to alcoholism. She lost her right eye due to fall last year. Review of Systems Review of Systems: 12 systems were reviewed and are negativ e except for as per HPI. Exam Narrative: General: Well-developed, nontoxic-appearing female in the semi-Bryant position in bed in no distress. Weight: 71.6 kg. BMI: 24.7. HEENT: Hematoma and laceration on the posterior left scalp. Wound has been sutured. There is dry blood around the wound. PERRL, EOMI. Sclera anicteric. Conjunctiva mildly injected. Moist mucous membranes. Left side of the tongue has mild bruising and some swelling. Neck: Supple. No midline vertebral tenderness. Respiratory: Lungs are clear to auscultation bilaterally. Cardiovascular: Regular rate and rhythm with S1-S2. Gastrointestinal: Abdomen is soft, nontender, and nondistended with positive bowel sounds. Skin: Warm and dry. Bruise on the right scapula. Extremities: No cyanosis, clubbing, or edema. Radial and pedal pulses intact. Neurological: Alert and oriented. Cranial nerves 2-12 are grossly intact. Speech is clear. No facial asymmetry. No gross focal deficits to casual conversation. Psychiatric: Pleasant and cooperative with appropriate mood and affect. Objective Data Vital Signs Vital Signs: Vital Signs - 24 hr 01/03/25 14:16 01/03/25 15:43 01/03/25 15:44 Temperature Pulse Rate 119 H 107 H 107 H Respiratory Rate 20 21 H 20 Blood Pressure 153/108 H 146/84 H Pulse Oximetry 96 Oxygen Delivery Fraction of Inspired Oxygen 01/03/25 15:45 01/03/25 15:46 01/03/25 15:47 Temperature Pulse Rate 105 H 104 H 105 H Respiratory Rate 16 21 H 21 H Blood Pressure 133/79 Pulse Oximetry Oxygen Delivery Fraction of Inspired Oxygen 01/03/25 16:00 01/03/25 16:01 01/03/25 16:15 Temperature Pulse Rate 101 H 105 H 124 H Respiratory Rate 20 17 18 Blood Pressure 131/79 Pulse Oximetry Oxygen Delivery Fraction of Inspired Oxygen 01/03/25 16:17 01/03/25 16:30 01/03/25 16:31 Temperature Pulse Rate 104 H 91 96 Respiratory Rate 23 H 21 H 29 H Blood Pressure 100/87 101/60 Pulse Oximetry Oxygen Delivery Fraction of Inspired Oxygen 01/03/25 17:06 01/03/25 17:15 01/03/25 17:17 Temperature Pulse Rate 103 H 95 93 Respiratory Rate 28 H 17 16 Blood Pressure 138/73 Pulse Oximetry Oxygen Delivery Fraction of Inspired Oxygen 01/03/25 17:30 01/03/25 17:31 01/03/25 18:16 Temperature Pulse Rate 98 98 Respiratory Rate 13 14 Blood Pressure 137/80 124/111 H Pulse Oximetry Oxygen Delivery Fraction of Inspired Oxygen 01/03/25 18:18 01/03/25 18:30 01/03/25 18:31 Temperature Pulse Rate 96 Respiratory Rate Blood Pressure 109/79 Pulse Oximetry 97 96 Oxygen Delivery Fraction of Inspired Oxygen 01/03/25 20:00 01/03/25 20:00 01/03/25 20:20 Temperature 97.8 F Pulse Rate 80 89 Respiratory Rate 16 Blood Pressure 133/67 Pulse Oximetry 100 99 Oxygen Delivery Room Air Room Air Fraction of Inspired Oxygen 21 01/03/25 20:20 01/03/25 20:35 01/04/25 00:00 Temperature 97.8 F Pulse Rate 97 80 79 Respiratory Rate 16 Blood Pressure 133/67 Pulse Oximetry 100 Oxygen Delivery Fraction of Inspired Oxygen 01/04/25 04:00 01/04/25 05:48 01/04/25 07:43 Temperature 97.3 F L Pulse Rate 74 74 Respiratory Rate 12 Blood Pressure 124/70 Pulse Oximetry 100 91 Oxygen Delivery Room Air Fraction of Inspired Oxygen 21 Intake/Output Intake/Output: Intake & Output 01/01/25 01/02/25 01/03/25 01/04/25 23:59 23:59 23:59 23:59 Intake Total 1999 1056.3 Balance 1999 1056.3 Meds/Results Medications: Active Medications Generic Name Dose Route Start Last Admin Trade Name Freq PRN Reason Stop Dose Admin Acetaminophen 650 mg 01/03/25 17:18 01/03/25 21:50 Acetaminophen 325 Mg Tablet PO 650 mg Q4H PRN Administration Mild Pain (1-3) or Fever Hydrocodone Bitart/Acetaminophen 1 tab 01/03/25 22:54 Hydrocodone/Acetaminophen (*Crx) 5-325 Mg Tablet PO Q6H PRN Pain Rated 4-6 Cephalexin HCl 500 mg 01/03/25 18:00 01/04/25 05:19 Cephalexin 500 Mg Capsule PO 500 mg Q6HR KAYKAY Administration Desvenlafaxine Succinate 100 mg 01/04/25 09:00 Desvenlafaxine Succinate 50 Mg Tab.Er.24h PO DAILY KAYKAY Hydroxyzine HCl 50 mg 01/04/25 00:03 Hydroxyzine Hcl 25 Mg Tablet PO TID PRN anxiety Sodium Chloride 1,000 mls @ 125 mls/hr 01/03/25 17:20 01/04/25 02:36 Normal Saline Iv IV CONT 125 mls/hr .Q8H KAYKAY Administration Morphine Sulfate 2 mg 01/03/25 22:54 01/03/25 23:19 Morphine Sulfate (*Crx) 2 Mg/Ml Inj IV PUSH 2 mg Q4H PRN Administration Pain Rated 7-10 Ondansetron HCl 4 mg 01/03/25 17:18 Ondansetron Inj 4 Mg/2 Ml Vial IV PUSH Q4H PRN Nausea Perflutren Lipid Microsphere 0 ml 01/04/25 00:02 Perflutren Lipid Microspheres 1.5 Ml Vial Diluted To 10 Ml Total Volume IV PUSH 01/07/25 00:03 ONCE PRN adequate visualization Protocol Radiology Results: ITS Impressions Head CT 01/03/25 15:01 IMPRESSION: No acute intracranial findings. Large left occipital scalp hematoma. Chest X-Ray 01/03/25 15:20 IMPRESSION: No acute cardiopulmonary pathology. Cervical Spine CT 01/03/25 15:25 IMPRESSION: No acute osseous abnormality cervical spine. Multilevel degenerative disc disease. Labs Labs: Laboratory Results - last 24 hr 01/03/25 01/03/25 01/03/25 14:58 15:37 16:04 WBC 11.6 H RBC 3.69 L Hgb 11.2 L Hct 34.2 L MCV 92.7 MCH 30.4 MCHC 32.7 RDW 14.0 Plt Count 217 MPV 9.7 Immature Gran % (Auto) 0.3 Neut % (Auto) 72.7 Lymph % (Auto) 20.2 [place] % (Auto) 6.0 Eos % (Auto) 0.5 Baso % (Auto) 0.3 Lymph # (Auto) 2.34 [place] # (Auto) 0.7 H Eos # (Auto) 0.1 Baso # (Auto) 0.0 Abs Immat Gran (auto) 0.04 H Absolute Neuts (auto) 8.4 H Absolute Nucleated RBC 0.000 Nucleated RBC % 0.0 PT 13.6 INR 1.0 APTT 25.7 Puncture Site Right brachial ABG pH 7.439 ABG pCO2 35.1 ABG pO2 63.5 L ABG PO2/FiO2 Ratio 3.02 ABG HCO3 23.3 ABG O2 Saturation 93.2 L ABG O2 Content 15.0 L ABG Base Excess -0.5 A-a Gradient 44.2 Oxyhemoglobin 91.6 Total Hemoglobin 11.6 L O2 Delivery Device Room air O2 Liters/Min 0.0 FiO2 21 Sodium 135 L Potassium 3.2 L Chloride 101 Carbon Dioxide 24 Anion Gap 10 BUN 12 Creatinine 0.63 L Estim Creat Clear Calc 79 Estimated GFR > 60 Glucose 110 Calcium 9.2 Total Bilirubin 0.6 AST 34 ALT 20 Alkaline Phosphatase 71 Ammonia Cancelled Total Creatine Kinase 67 Troponin I < 0.012 Total Protein 7.0 Albumin 4.4 TSH 2.390 Urine Color Yellow Urine Appearance Clear Urine pH 5.5 Ur Specific [place] 1.022 Urine Protein 2+ H Urine Glucose (UA) Negative Urine Ketones Trace H Ur Blood (Man) Negative Urine Nitrate Negative Urine Bilirubin Negative Urine Urobilinogen 0.2 Add Ur Microanalysis Reviewed Leukocyte Esterase Rfl Negative Urine RBC 0-2 Urine WBC 0-5 Ur Squamous Epith Cells None seen Urine Bacteria None seen Urine Casts 6-10 Hyaline Casts Present Urine Mucus Present Urine Opiates Screen Positive A Urine Methadone Screen Negative Ur Barbiturates Screen Negative Ur Phencyclidine Scrn Negative Ur Amphetamine Screen Negative U Benzodiazepines Scrn Positive A Urine Cocaine Screen Negative U Cannabinoids Screen Negative Ethyl Alcohol < 10 01/03/25 01/04/25 17:49 06:37 WBC 7.0 RBC 2.87 L Hgb 8.8 L Hct 27.6 L MCV 96.2 MCH 30.7 MCHC 31.9 L RDW 14.5 Plt Count 184 MPV 10.4 Immature Gran % (Auto) Neut % (Auto) Lymph % (Auto) [place] % (Auto) Eos % (Auto) Baso % (Auto) Lymph # (Auto) [place] # (Auto) Eos # (Auto) Baso # (Auto) Abs Immat Gran (auto) Absolute Neuts (auto) Absolute Nucleated RBC Nucleated RBC % PT INR APTT Puncture Site ABG pH ABG pCO2 ABG pO2 ABG PO2/FiO2 Ratio ABG HCO3 ABG O2 Saturation ABG O2 Content ABG Base Excess A-a Gradient Oxyhemoglobin Total Hemoglobin O2 Delivery Device O2 Liters/Min FiO2 Sodium 137 Potassium 3.9 Chloride 107 Carbon Dioxide 28 Anion Gap 2 L BUN 7 D Creatinine 0.58 L Estim Creat Clear Calc 85 Estimated GFR > 60 Glucose 95 Calcium 8.7 Total Bilirubin 0.4 AST 25 ALT 13 Alkaline Phosphatase 49 Ammonia < 9 L Total Creatine Kinase Troponin I Total Protein 6.0 L Albumin 3.3 L TSH Urine Color Urine Appearance Urine pH Ur Specific [place] Urine Protein Urine Glucose (UA) Urine Ketones Ur Blood (Man) Urine Nitrate Urine Bilirubin Urine Urobilinogen Add Ur Microanalysis Leukocyte Esterase Rfl Urine RBC Urine WBC Ur Squamous Epith Cells Urine Bacteria Urine Casts Hyaline Casts Urine Mucus Urine Opiates Screen Urine Methadone Screen Ur Barbiturates Screen Ur Phencyclidine Scrn Ur Amphetamine Screen U Benzodiazepines Scrn Urine Cocaine Screen U Cannabinoids Screen Ethyl Alcohol Quality VTE Prophylaxis VTE prophylaxis: mechanical ordered Hospitalist MIPS Advance Care Plan I have confirmed that the patient's Advanced Care Plan is present, code status is documented, or surrogate decision maker is listed in patient medical record.: Yes Medication Reconciliation I have utilized all available resources to obtain, update and review the patients current medications (includes all prescriptions, OTC, herbals, cannabis, and nutritional supplements).: Yes
[2025-01-04] MEDS: DESVENLAFAXINE SUCCINATE 50 MG TAB.ER.24H 100 MG PO (08:52)
[2025-01-04] MEDS: hydrOXYzine HCL 25 MG TABLET 50 MG PO ×2 (11:32→19:52)
--- NOTE | 2025-01-04 16:17 | P.CONNEU_ITS ---
Assessment and Plan Assessment and plan (1) Seizure: Code(s): R56.9 - Unspecified convulsions Status: Acute (2) Drug abuse: Code(s): F19.10 - Other psychoactive substance abuse, uncomplicated Status: Acute (3) Alcoholism in recovery: Code(s): F10.21 - Alcohol dependence, in remission Status: Acute Plan Neurological examination did not reveal any significant abnormality. CT scan of brain also did not show any significant abnormalities. MRI of the brain also did not show any significant abnormal findings. CT scan of cervical spine also did not show any significant abnormal findings. The patient think that she might have had 1 or 2 seizures in the past but they were attributed to alcohol drinking. She states that she has not had any drink for last 9 days. An EEG is requested. Seizure precautions are in place. Her hemoglobin is fairly low at 8.8 g % which may require some attention. Liver enzymes within normal range. I will suggest to check her vitamin B1 and magnesium level and replace if needed. The decision to start her on anticonvulsant is complete complex. Patient lives by herself. I shall discuss this further with the hospitalist team since the suspicion for alcohol withdrawal seizure does remain but she does not seem to be displaying any all symptoms at this time. A follow-up is recommended. Consult date: 01/04/25 HPI: Madhavi Clark is a 59 year old female With history of chronic alcoholism states that she was not drinking since August but she had a relapse days ago when she had 2 glasses of wine which she states is not much for her. At any rate she was brought to the hospital because she was standing and suddenly she blacked out and she had a bump on the occipital area. She does not know what happened until she found herself being brought by ambulance to the hospital. When she woke up she did not have any confusional state or sleepiness. She did bite her tongue to the left side. She did not have incontinence of urine. A bystander mentioned patient has had a fall from standing position and she landed backwards and hit the back of her head on the ground. EMT told the emergency room staff that she has some tremor of the hands otherwise no clear history of what was going on. She received 10 mg of Versed prior to arrival. Initial workup had shown urine positive for opiates and benzodiazepine. Alcohol level was less than 10. CT scan of the brain did not show any significant abnormalities. An MRI of the brain has been performed the results of which are awaited. An occipital hematoma was noted on the CT scan of brain however no intracranial bleed. 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 Review of Systems 2 Review of Systems: All systems reviewed & are unremarkable except as noted in HPI and below PMFSH Past Medical History Medical History Anxiety and depression Alcoholism in recovery Surgical History Surgical History History of cervical discectomy History of laparoscopy Social History Social History Social History: Surrogate medical decision maker: Eliceo Reyna, daughter ([phone]) Code status: Full code. Smoking status: Never smoker Alcohol intake: former Substance use: never Do You Feel Safe in your Home?: No Lack of Transportation: No Lack of Food: Never True Current Housing: I Have Housing Concerned About Future Housing: No Difficulty Paying Gas/Electric Bills: No Difficulty Paying for Meds: No Currently Unemployed: No Education: High School Diploma/GED Difficulty w/ Childcare or Family Care: No Spiritual care concerns: No Meds Home Medications and Allergies Home Medications ?Medication ?Instructions ?Recorded ?Confirmed ?Type desvenlafaxine succinate 100 mg 100 mg PO DAILY 01/03/25 01/03/25 History tablet,extended release 24 hr hydroxyzine HCl 50 mg tablet 50 mg PO TID PRN anxiety 01/03/25 01/03/25 History naltrexone 50 mg tablet 50 mg PO DAILY 01/03/25 01/03/25 History Allergies Allergy/AdvReac Type Severity Reaction Status Date / Time No Known Allergies Allergy Verified 01/03/25 15:07 Vital Signs Vital Signs - 24 hr 01/03/25 16:30 01/03/25 16:31 01/03/25 17:06 Temperature Pulse Rate 91 96 103 H Respiratory Rate 21 H 29 H 28 H Blood Pressure 101/60 Pulse Oximetry Oxygen Delivery Fraction of Inspired Oxygen 01/03/25 17:15 01/03/25 17:17 01/03/25 17:30 Temperature Pulse Rate 95 93 98 Respiratory Rate 17 16 13 Blood Pressure 138/73 Pulse Oximetry Oxygen Delivery Fraction of Inspired Oxygen 01/03/25 17:31 01/03/25 18:16 01/03/25 18:18 Temperature Pulse Rate 98 96 Respiratory Rate 14 Blood Pressure 137/80 124/111 H Pulse Oximetry Oxygen Delivery Fraction of Inspired Oxygen 01/03/25 18:30 01/03/25 18:31 01/03/25 20:00 Temperature 97.8 F Pulse Rate 80 Respiratory Rate 16 Blood Pressure 109/79 133/67 Pulse Oximetry 97 96 100 Oxygen Delivery Fraction of Inspired Oxygen 01/03/25 20:00 01/03/25 20:20 01/03/25 20:20 Temperature Pulse Rate 89 97 Respiratory Rate Blood Pressure Pulse Oximetry 99 Oxygen Delivery Room Air Room Air Fraction of Inspired Oxygen 21 01/03/25 20:35 01/04/25 00:00 01/04/25 04:00 Temperature 97.8 F Pulse Rate 80 79 74 Respiratory Rate 16 Blood Pressure 133/67 Pulse Oximetry 100 Oxygen Delivery Fraction of Inspired Oxygen 01/04/25 05:48 01/04/25 07:43 01/04/25 08:00 Temperature 97.3 F L Pulse Rate 74 78 Respiratory Rate 12 Blood Pressure 124/70 112/71 Pulse Oximetry 100 91 98 Oxygen Delivery Room Air Fraction of Inspired Oxygen 21 01/04/25 08:00 01/04/25 08:00 01/04/25 08:05 Temperature Pulse Rate 85 92 Respiratory Rate Blood Pressure 128/81 Pulse Oximetry 100 100 Oxygen Delivery Room Air Fraction of Inspired Oxygen 01/04/25 08:10 01/04/25 14:00 01/04/25 16:00 Temperature 96.9 F L Pulse Rate 88 94 93 Respiratory Rate 14 Blood Pressure 124/84 122/62 Pulse Oximetry 100 100 Oxygen Delivery Fraction of Inspired Oxygen Exam 2 Const: General: cooperative, well developed and alert O rientation/consciousness: patient oriented x3 HENMT: Head: atraumatic Mouth: Yes oropharynx normal Other: Eyes: Alignment and Position: position normal EOM: EOMs intact bilaterally Other: Afferent pupillary defect on the right eye Neck: Neck: supple Resp: Effort & Inspection: normal respiratory effort Neuro: General: patient oriented x3 Cranial nerves: Yes CN's II-XII intact bilaterally ( Except for afferent pupillary defect on the right side), Yes facial sensation intact/muscles of mastication intact, Yes Equal, round and reactive pupils present, Yes facial symmetry and Yes Midline tongue present C ognition (Neuro): normal cognition Speech: normal speech Motor exam (neuro): 5/5 motor strength present throughout Sensory Exam: normal sensation Coordination: [id number] test normal and Normal rapid alternating movements of the distal upper extremity present (Neuro) Other: knee reflexes were 2+/4 and ankle reflexes decreased. patient also has decreased vision on the right side. Extrem: General: normal to inspection Psych: Mental Status: mental status grossly normal Affect: normal affect Results Labs 01/04/25 06:37 01/04/25 06:37 Labs: Short CBC 01/04/25 Range/Units 06:37 WBC 7.0 (4.5-10.0) K/mm3 Hgb 8.8 L (12.0-15.0) g/dL Hct 27.6 L (37.0-47.0) % Plt Count 184 (150-375) k/mm3 BMP 01/04/25 06:37 Sodium 137 Potassium 3.9 Chloride 107 Carbon Dioxide 28 BUN 7 D Creatinine 0.58 L Glucose 95 Calcium 8.7 Cardiac Enzymes 01/03/25 Range/Units 15:37 Troponin I < 0.012 (0.000-0.034) ng/mL Liver Function 01/04/25 Range/Units 06:37 Total Bilirubin 0.4 (0.2-1.3) mg/dL AST 25 (14-36) U/L ALT 13 (6-35) U/L Alkaline Phosphatase 49 (38-126) U/L Albumin 3.3 L (3.5-5.1) g/dL Urine 01/03/25 Range/Units 16:04 Urine Color Yellow (Yellow) Urine Appearance Clear (Clear) Urine pH 5.5 (5.0-9.0) Ur Specific [place] 1.022 (1.001-1.035) Urine Protein 2+ H (Negative) mg/dL Urine Glucose (UA) Negative (Negative) mg/dL
[2025-01-04 17:23] LABS: Magnesium 1.6 mg/dL (1.6-2.3)
[2025-01-04 17:51] LABS: Vitamin D 25 Hydroxy 32.5 ng/mL
[2025-01-04 18:30] LABS: Folic Acid 14.4 ng/mL (2.76->20)
[2025-01-04] MEDS: HYDROcodone/acetaminophen (*CRX) 5-325 MG TABLET 1 TAB PO (19:52)
[2025-01-05] VITALS (13 sets, daily range): BP systolic 130–175; BP diastolic 66–95; PULSE 67–100; RESP 16–20; TEMP 36.4–36.6; O2SAT 100
--- NOTE | 2025-01-05 | ECHO_ITS ---
Patient Info Name: Madhavi Clark Age: 59 years : 1965 Gender: Female Ht: 67 in Wt: 157 lbs BSA: 1.84 m2 HR: 73 bpm BP: 175 / 95 mmHg Technical Quality: Good Exam Date: 01/05/2025 1:05 PM Patient Status: I Admit Date: 01/05/2025 Exam Type: CA echo doppler color flow Complete two-dimensional, color flow and Doppler transthoracic echocardiogram is performed. Staff Referring Physician: Rosa Maria Vela [facility] [employer] Marine: Dori Bills Attending Provider: Marianne Pop MD Summary 1. Complete two-dimensional, color flow and Doppler transthoracic echocardiogram is performed. 2. There is normal biventricular size and systolic function. 3. There is no significant valvular abnormalities. Left Ventricle The left ventricle is normal in size and systolic function. The left ventricular ejection fraction is visually estimated to be 65-70%. Right Ventricle The right ventricle is normal in size and systolic function. Left Atria The left atrium is moderately dilated. Right Atria The right atrium is normal size. Atrial Septum The atrial septum is normal by color Doppler. Aortic Valve The aortic valve opens well. There is no aortic regurgitation. Pulmonic Valve The pulmonic valve is not well visualized. There is trace pulmonic valve regurgitation by color Doppler. Mitral Valve The mitral valve is sclerotic but opens well. There is trace mitral regurgitation. Tricuspid Valve The tricuspid valve is grossly normal. There is trace tricuspid regurgitation. Pericardium/Pleural Pericardium is normal in appearance with no evidence for significant pericardial effusion. Inferior Vena Cava Inferior vena cava is not well visualized. Aorta The aortic root at the level of the sinus of Valsalva measures 3.6 cm in diameter. Left Ventricular Outflow Tract Name Value Normal LVOT 2D LVOT Diameter 1.9 cm LVOT Doppler LVOT Peak Velocity 130 cm/s LVOT Peak Gradient 7 mmHg LVOT Mean Gradient 4 mmHg LVOT VTI 31 cm LVOT VTI/AV VTI Ratio 0.9 LVOT Stroke Volume 92 ml LVOT CO 18.5 l/min LVOT CI 10.0 l/min/m2 Pulmonic Valve Name Value Normal PV Doppler PV Peak Velocity 92 cm/s PV Peak Gradient 3 mmHg Mitral Valve Name Value Normal MV Diastolic Function MV E Peak Velocity 109 cm/s MV A Peak Velocity 67 cm/s MV E/A 1.6 MV Decel Time (PW) 229 ms MV Annular TDI MV E/e' (Septal) 13.7 MV E/e' (Lateral) 9.8 MV E/e' (Average) 11.8 Tricuspid Valve Name Value Normal TV Regurgitation Doppler TR Peak Velocity 269 cm/s TR Peak Gradient 29 mmHg Estimated PAP/RSVP RA Pressure 10 mmHg <=5 PA Systolic Pressure 39 mmHg <36 RV Systolic Pressure 39 mmHg <36 TV Annular TDI TV Lateral Comfort s' Velocity 16.0 cm/s >=9.5 Aorta Name Value Normal Ascending Aorta Ao Root Diameter (MM) 3.4 cm Ao Root Diam Index (MM) 1.8 cm/m2 Aortic Valve Name Value Normal AV Doppler AV Peak Velocity 145 cm/s AV Peak Gradient 8 mmHg AV Mean Gradient 6 mmHg AV VTI 34 cm AV Area (Cont Eq VTI) 2.7 cm2 >=3.0 AV Area (Cont Eq Mina) 2.7 cm2 AV DI (Mina) 0.89 AV Regurgitation 2D LVOT Area 3.0 cm2 Ventricles Name Value Normal LV Dimensions 2D/MM IVS Diastolic Thickness (2D) 1.0 cm 0.6-1.0 LVID Diastole (2D) 4.0 cm 3.8-5.2 LVIW Diastolic Thickness (2D) 1.0 cm 0.6-0.9 LVID Systole (2D) 2.3 cm 2.2-3.5 LVOT Diameter 1.9 cm LV Mass (2D Cubed) 124.56 g 67.00-162.00 LV Mass Index (2D Cubed) 68 g/m2 43-95 Relative Wall Thickness (2D) 0.49 <=0.42 LV Fractional Shortening/Ejection Fraction 2D/MM LV Fractional Shortening (2D) 43 % 27-45 LV EF (2D Teichholz) 74 % LV Diastolic Volume (4C MOD) 110 ml LV EF (4C MOD) 74 % LV Diastolic Volume (2C MOD) 115 ml LV EF (2C MOD) 75 % LV Diastolic Volume (BP MOD) 113 ml 46-106 LV Diastolic Volume Index (BP MOD) 61 ml/m2 29-61 LV Systolic Volume (BP MOD) 29 ml 14-42 LV Systolic Volume Index (BP MOD) 16 ml/m2 8-24 LV EF (BP MOD) 75 % 54-74 LV Diastolic Length (4C) 8.9 cm LV Systolic Length (4C) 6.7 cm LV Stroke Volume (4C MOD) 81 ml RV Dimensions 2D/MM RVID Diastole (2D) 3.9 cm 2.1-3.5 Atria Name Value Normal LA Dimensions LA Dimension (MM) 2.8 cm 2.7-3.8 LA Volume (4C A-L) 75 ml LA Volume (BP A-L) 81 ml RA Dimensions RA Systolic Major [place] Length (4C) 4.5 cm 2.2-2.8 RA Area (4C) 11.9 cm2 <=18.0 Report Signatures
[2025-01-05] MEDS: HYDROcodone/acetaminophen (*CRX) 5-325 MG TABLET 1 TAB PO ×2 (04:10→11:27)
[2025-01-05] MEDS: CEPHALEXIN 500 MG CAPSULE PO ×3 (04:16→17:21)
[2025-01-05] MEDS: SODIUM CHLORIDE 0.9% IV 1,000 ML 125 ML IV CONT ×2 (04:16→12:43)
[2025-01-05 05:52] LABS: Hematocrit 27.4 % (37.0-47.0); Hemoglobin 8.5 g/dL (12.0-15.0); Mean Corpuscular Volume 96.8 fl (80-100); Platelet Count Result 162 k/mm3 (150-375); Red Blood Count 2.83 M/mm3 (4.2-5.4); Red Cell Distribution Width 14.5 % (11.5-14.5)
[2025-01-05 06:01] LABS: Alanine Aminotransferase 13 U/L (6-35); Albumin Level 3.2 g/dL (3.5-5.1); Alkaline Phosphatase 50 U/L (38-126); Anion Gap 5 mmol/L (4-12); Aspartate Amino Transferase 22 U/L (14-36); Bilirubin,Total 0.2 mg/dL (0.2-1.3); Blood Urea Nitrogen 4 mg/dL (7-17); Calcium 8.5 mg/dL (8.4-10.2); Carbon Dioxide 25 mmol/L (22-30); Chloride 107 mmol/L (98-107); Estimated CRCL calculation 101 ml/min; Estimated Glomerular Filt Rate > 60; Glucose 98 mg/dL (65-110); Potassium 3.7 mmol/L (3.4-5.0); Sodium 137 mmol/L (137-145)
--- NOTE | 2025-01-05 08:27 | P.PNIM_ITS ---
Progress Note: A&P Assessment and Plan (1) Seizure: Code(s): R56.9 - Unspecified convulsions Status: Acute Assessment and Plan: Unprovoked seizure Neuro check q.4 hours Brain MRI EEG Echocardiogram No evidence of hypoglycemia Chronic alcoholism No evidence of electrolyte abnormality Seizure precaution Neurology consult (2) Hypokalemia: Code(s): E87.6 - Hypokalemia Status: Acute Assessment and Plan: Replenish (3) Anxiety and depression: Code(s): F41.9 - Anxiety disorder, unspecified; F32.A - Depression, unspecified Status: Acute Assessment and Plan: Continue home medication (4) Drug abuse: Code(s): F19.10 - Other psychoactive substance abuse, uncomplicated Status: Acute (5) Alcoholism in recovery: Code(s): F10.21 - Alcohol dependence, in remission Status: Acute (6) Anemia: Code(s): D64.9 - Anemia, unspecified Status: Acute Assessment and Plan: Patient hemoglobin dropped from 11.2 to 8.5 Ordered anemia panel including FOBT Subjective Date/time seen: 01/05/25 08:27 Interval history: Neurology evaluated the patient yesterday. EEG is pending. Neurology believes seizures possibly related to her chronic alcoholism and starting anti-epileptic for now is complex decision. CT head, cervical and MRI shows no abnormalities. As mentioned previously patient has history of chronic alcoholism and lost her job last year. Patient also had multiple falls due to alcoholism. Patient lost vision in her right eye due to fall last year. Ordered anemia panel. Underwent echocardiogram and pending results Review of Systems Review of Systems: 12 systems were reviewed and are negativ e except for as per HPI. All systems reviewed & are unremarkable except as noted in HPI and below ROS unobtainable: Yes unobtainable due to mental status Exam Narrative: General: Well-developed, nontoxic-appearing female in the semi-Bryant position in bed in no distress. Weight: 71.6 kg. BMI: 24.7. HEENT: Hematoma and laceration on the posterior left scalp. Wound has been sutured. There is dry blood around the wound. PERRL, EOMI. Sclera anicteric. Conjunctiva mildly injected. Moist mucous membranes. Left side of the tongue has mild bruising and some swelling. Neck: Supple. No midline vertebral tenderness. Respiratory: Lungs are clear to auscultation bilaterally. Cardiovascular: Regular rate and rhythm with S1-S2. Gastrointestinal: Abdomen is soft, nontender, and nondistended with positive bowel sounds. Skin: Warm and dry. Bruise on the right scapula. Extremities: No cyanosis, clubbing, or edema. Radial and pedal pulses intact. Neurological: Alert and oriented. Cranial nerves 2-12 are grossly intact. Speech is clear. No facial asymmetry. No gross focal deficits to casual conversation. Psychiatric: Pleasant and cooperative with appropriate mood and affect. Const: General: cooperative, well developed and alert Orientation/consciousness: patient oriented x3 HENMT: Head: atraumatic Mouth: Yes oropharynx normal Other: Eyes: Alignment and Position: position normal Pupils: Equal, round and reactive pupils present EOM: EOMs intact bilaterally Other: Afferent pupillary defect on the right eye Neck: Neck: supple Resp: Effort & Inspection: normal respiratory effort Neuro: General: patient oriented x3 Cranial nerves: Yes CN's II-XII intact bilaterally ( Except for afferent pupillary defect on the right side), Yes facial sensation intact/muscles of mastication intact, Yes Equal, round and reactive pupils present, Yes facial symmetry and Yes Midline tongue present Cognition (Neuro): normal cognition Speech: normal speech Motor exam (neuro): 5/5 motor strength present throughout Sensory Exam: normal sensation Coordination: [id number] test normal and Normal rapid alternating movements of the distal upper extremity present (Neuro) Other: knee reflexes were 2+/4 and ankle reflexes decreased. patient also has decreased vision on the right side. Extrem: General: normal to inspection Psych: Mental Status: mental status grossly normal Affect: normal affect Objective Data Vital Signs Vital Signs: Vital Signs - 24 hr 01/04/25 14:00 01/04/25 16:00 01/04/25 19:55 Temperature 96.9 F L 97.2 F L Pulse Rate 94 93 80 Respiratory Rate 14 18 Blood Pressure 122/62 144/85 H Pulse Oximetry 100 100 01/04/25 20:00 01/05/25 00:00 01/05/25 00:16 Temperature Pulse Rate 74 72 Respiratory Rate Blood Pressure 130/84 Pulse Oximetry 01/05/25 00:17 01/05/25 03:47 01/05/25 04:00 Temperature 97.6 F Pulse Rate 68 75 Respiratory Rate 16 Blood Pressure 161/83 H 175/95 H Pulse Oximetry 100 01/05/25 07:47 01/05/25 07:48 01/05/25 07:49 Temperature 97.6 F 97.6 F 97.6 F Pulse Rate 84 100 84 Respiratory Rate 18 18 18 Blood Pressure 132/88 157/92 H 153/84 H Pulse Oximetry 100 100 100 Intake/Output Intake/Output: Intake & Output 01/02/25 01/03/25 01/04/25 01/05/25 23:59 23:59 23:59 23:59 Intake Total 1999 3651.3 1000 Balance 1999 3651.3 1000 Meds/Results Medications: Active Medications Generic Name Dose Route Start Last Admin Trade Name Freq PRN Reason Stop Dose Admin Acetaminophen 650 mg 01/03/25 17:18 01/03/25 21:50 Acetaminophen 325 Mg Tablet PO 650 mg Q4H PRN Administration Mild Pain (1-3) or Fever Hydrocodone Bitart/Acetaminophen 1 tab 01/03/25 22:54 01/05/25 04:10 Hydrocodone/Acetaminophen (*Crx) 5-325 Mg Tablet PO 1 tab Q6H PRN Administration Pain Rated 4-6 Cephalexin HCl 500 mg 01/03/25 18:00 01/05/25 04:16 Cephalexin 500 Mg Capsule PO 500 mg Q6HR KAYKAY Administration Desvenlafaxine Succinate 100 mg 01/04/25 09:00 01/04/25 08:52 Desvenlafaxine Succinate 50 Mg Tab.Er.24h PO 100 mg DAILY KAYKAY Administration Hydroxyzine HCl 50 mg 01/04/25 00:03 01/04/25 19:52 Hydroxyzine Hcl 25 Mg Tablet PO 50 mg TID PRN Administration anxiety Sodium Chloride 1,000 mls @ 125 mls/hr 01/03/25 17:20 01/05/25 04:16 Normal Saline Iv IV CONT 125 mls/hr .Q8H KAYKAY Administration Lorazepam 2 mg 01/04/25 13:36 Lorazepam Inj (*Crx) 2 Mg/Ml Vial IV PUSH Q4H PRN Seizures Morphine Sulfate 2 mg 01/03/25 22:54 01/03/25 23:19 Morphine Sulfate (*Crx) 2 Mg/Ml Inj IV PUSH 2 mg Q4H PRN Administration Pain Rated 7-10 Ondansetron HCl 4 mg 01/03/25 17:18 Ondansetron Inj 4 Mg/2 Ml Vial IV PUSH Q4H PRN Nausea Perflutren Lipid Microsphere 0 ml 01/04/25 00:02 Perflutren Lipid Microspheres 1.5 Ml Vial Diluted To 10 Ml Total Volume IV PUSH 01/07/25 00:03 ONCE PRN adequate visualization Protocol Radiology Results: ITS Impressions Head CT 01/03/25 15:01 IMPRESSION: No acute intracranial findings. Large left occipital scalp hematoma. Chest X-Ray 01/03/25 15:20 IMPRESSION: No acute cardiopulmonary pathology. Cervical Spine CT 01/03/25 15:25 IMPRESSION: No acute osseous abnormality cervical spine. Multilevel degenerative disc disease. Brain MRI 01/04/25 14:47 IMPRESSION: 1. Possible minimal diffusion restriction in the parasagittal area is which may indicate postictal phase. Clinical correlation advised. 2. No enhancing lesions seen. 3. Large scalp hematoma in the left parieto-occipital area. Labs Labs: Laboratory Results - last 24 hr 01/04/25 01/05/25 17:09 05:24 WBC 7.0 RBC 2.83 L Hgb 8.5 L Hct 27.4 L MCV 96.8 MCH 30.0 MCHC 31.0 L RDW 14.5 Plt Count 162 MPV 10.0 Sodium 137 Potassium 3.7 Chloride 107 Carbon Dioxide 25 Anion Gap 5 BUN 4 L Creatinine 0.48 L Estim Creat Clear Calc 101 Estimated GFR > 60 Glucose 98 Calcium 8.5 Magnesium 1.6 Total Bilirubin 0.2 AST 22 ALT 13 Alkaline Phosphatase 50 Total Protein 6.0 L Albumin 3.2 L Vitamin B12 182.0 L Vitamin D 25-Hydroxy 32.5 Folate 14.4 Quality VTE Prophylaxis VTE prophylaxis: mechanical ordered Hospitalist [facility] Advance Care Plan I have confirmed that the patient's Advanced Care Plan is present, code status is documented, or surrogate decision maker is listed in patient medical record.: Yes Medication Reconciliation I have utilized all available resources to obtain, update and review the patients current medications (includes all prescriptions, OTC, herbals, cannabis, and nutritional supplements).: Yes
[2025-01-05 09:14] LABS: Immature Reticulocyte Fraction 29.1 % (3.0-15.9); Reticulocyte Percent 3.46 % (0.7-4.3)
[2025-01-05 09:15] LABS: Iron 38 ug/dL (37-170)
[2025-01-05 09:17] LABS: Bilirubin,Total 0.2 mg/dL (0.2-1.3); Lactate Dehydrogenase 145 U/L (120-246)
[2025-01-05 09:24] LABS: Percent Iron Saturation 15 % (20-50)
[2025-01-05 09:25] LABS: Transferrin 174 mg/dL (206-381)
[2025-01-05] MEDS: DESVENLAFAXINE SUCCINATE 50 MG TAB.ER.24H 100 MG PO (09:30)
[2025-01-05] MEDS: ACETAMINOPHEN 325 MG TABLET 650 MG PO ×2 (09:30→17:21)
--- NOTE | 2025-01-05 15:38 | P.PNNEUR_ITS ---
Progress Note: A&P Assessment and Plan (1) Anemia: Code(s): D64.9 - Anemia, unspecified Status: Acute Assessment and Plan: Her hemoglobin was low at 8.5 g%. This may require some attention Plan out suggest to continue to observe. EEG and carotid Doppler study are pending. The decision to put her on long-term anticonvulsant empirically would need to make. Her vitamin B12 level is low at 1 age 1 and I have suggested vitamin B12 1000 mcg injection daily for 3 days and thereafter she can have 1000 mcg once a month. Her serum magnesium level 1.6 which is the lower end of normal range. Subjective Date/time seen: 01/05/25 15:38 Interval history: a 59-year-old with the episode of sudden fall possible seizures and alcoholism was seen for follow-up. She has not had any further episodes of loss of consciousness. She has headache which is most likely due to the occipital hematoma. She was given some pain medications and she is resting. Her vitamin B12 level was low at 182. Review of Systems Review of Systems: All systems reviewed & are unremarkable except as noted in HPI and below Exam Narrative: Fully conscious alert oriented to self time place and person. Speech is fluent and articulate. No aphasia or dysarthria. Examination head and neck s hows occipital hematoma. Cranial nerves on individual testing are intact. Motor system normal power and tone in both upper and lower limbs. No involuntary movements seen. No symptoms of withdrawal or tremulousness were noted. Objective Data Vital Signs Vital Signs: Vital Signs - 24 hr 01/04/25 16:00 01/04/25 19:55 01/04/25 20:00 Temperature 97.2 F L Pulse Rate 93 80 74 Respiratory Rate 18 Blood Pressure 144/85 H Pulse Oximetry 100 Oxygen Delivery 01/05/25 00:00 01/05/25 00:16 01/05/25 00:17 Temperature Pulse Rate 72 Respiratory Rate Blood Pressure 130/84 161/83 H Pulse Oximetry Oxygen Delivery 01/05/25 03:47 01/05/25 04:00 01/05/25 07:47 Temperature 97.6 F 97.6 F Pulse Rate 68 75 84 Respiratory Rate 16 18 Blood Pressure 175/95 H 132/88 Pulse Oximetry 100 100 Oxygen Delivery 01/05/25 07:48 01/05/25 07:49 01/05/25 09:30 Temperature 97.6 F 97.6 F Pulse Rate 100 84 Respiratory Rate 18 18 Blood Pressure 157/92 H 153/84 H Pulse Oximetry 100 100 Oxygen Delivery Room Air 01/05/25 14:00 Temperature 97.9 F Pulse Rate 81 Respiratory Rate 20 Blood Pressure 133/66 Pulse Oximetry 100 Oxygen Delivery Intake/Output Intake/Output: Intake & Output 01/02/25 01/03/25 01/04/25 01/05/25 23:59 23:59 23:59 23:59 Intake Total 1999 3651.3 2440 Balance 1999 3651.3 2440 Meds/Results Medications: Active Medications Generic Name Dose Route Start Last Admin Trade Name Freq PRN Reason Stop Dose Admin Acetaminophen 650 mg 01/03/25 17:18 01/05/25 09:30 Acetaminophen 325 Mg Tablet PO 650 mg Q4H PRN Administration Mild Pain (1-3) or Fever Hydrocodone Bitart/Acetaminophen 1 tab 01/03/25 22:54 01/05/25 11:27 Hydrocodone/Acetaminophen (*Crx) 5-325 Mg Tablet PO 1 tab Q6H PRN Administration Pain Rated 4-6 Cephalexin HCl 500 mg 01/03/25 18:00 01/05/25 11:27 Cephalexin 500 Mg Capsule PO 500 mg Q6HR KAYKAY Administration Cyanocobalamin 1,000 mcg 01/06/25 09:00 Cyanocobalamin 1,000 Mcg Tablet PO QAM KAYKAY Cyanocobalamin 1,000 mcg 01/06/25 09:00 Cyanocobalamin Inj 1,000 Mcg/Ml Vial IM DAILY KAYKAY Desvenlafaxine Succinate 100 mg 01/04/25 09:00 01/05/25 09:30 Desvenlafaxine Succinate 50 Mg Tab.Er.24h PO 100 mg DAILY KAYKAY Administration Hydroxyzine HCl 50 mg 01/04/25 00:03 01/04/25 19:52 Hydroxyzine Hcl 25 Mg Tablet PO 50 mg TID PRN Administration anxiety Sodium Chloride 1,000 mls @ 125 mls/hr 01/03/25 17:20 01/05/25 12:43 Normal Saline Iv IV CONT 125 mls/hr .Q8H KAYKAY Administration Lorazepam 2 mg 01/04/25 13:36 Lorazepam Inj (*Crx) 2 Mg/Ml Vial IV PUSH Q4H PRN Seizures Morphine Sulfate 2 mg 01/03/25 22:54 01/03/25 23:19 Morphine Sulfate (*Crx) 2 Mg/Ml Inj IV PUSH 2 mg Q4H PRN Administration Pain Rated 7-10 Ondansetron HCl 4 mg 01/03/25 17:18 Ondansetron Inj 4 Mg/2 Ml Vial IV PUSH Q4H PRN Nausea Perflutren Lipid Microsphere 0 ml 01/04/25 00:02 Perflutren Lipid Microspheres 1.5 Ml Vial Diluted To 10 Ml Total Volume IV PUSH 01/07/25 00:03 ONCE PRN adequate visualization Protocol Radiology Results: ITS Impressions Head CT 01/03/25 15:01 IMPRESSION: No acute intracranial findings. Large left occipital scalp hematoma. Chest X-Ray 01/03/25 15:20 IMPRESSION: No acute cardiopulmonary pathology. Cervical Spine CT 01/03/25 15:25 IMPRESSION: No acute osseous abnormality cervical spine. Multilevel degenerative disc disease. Brain MRI 01/04/25 14:47 IMPRESSION: 1. Possible minimal diffusion restriction in the parasagittal area is which may indicate postictal phase. Clinical correlation advised. 2. No enhancing lesions seen. 3. Large scalp hematoma in the left parieto-occipital area. Labs Labs: Laboratory Results - last 24 hr 01/04/25 01/05/25 01/05/25 17:09 05:24 05:24 WBC 7.0 RBC 2.83 L Hgb 8.5 L Hct 27.4 L MCV 96.8 MCH 30.0 MCHC 31.0 L RDW 14.5 Plt Count 162 MPV 10.0 Absolute Retic 0.10 Percent Retic 3.46 Immature Retic Fraction 29.1 H Retic Hgb Content 35.0 Sodium 137 Potassium 3.7 Chloride 107 Carbon Dioxide 25 Anion Gap 5 BUN 4 L Creatinine 0.48 L Estim Creat Clear Calc 101 Estimated GFR > 60 Glucose 98 Calcium 8.5 Magnesium 1.6 Iron 38 TIBC 258 L % Saturation 15 L Transferrin 174 L Ferritin 107.00 Total Bilirubin 0.2 0.2 Direct Bilirubin 0.0 AST 22 ALT 13 Alkaline Phosphatase 50 Lactate Dehydrogenase 145 Total Protein 6.0 L Albumin 3.2 L Vitamin B12 182.0 L Vitamin D 25-Hydroxy 32.5 Folate 14.4 TSH (Reflex) 2.710 RUPERTO, IgG Interpret TNP RUPERTO, Poly Interpret Negative RUPERTO, Complement Interp TNP
[2025-01-06] VITALS (11 sets, daily range): BP systolic 133–169; BP diastolic 66–92; PULSE 63–91; RESP 14–20; TEMP 35.6–36.2; O2SAT 97–99
[2025-01-06] MEDS: CEPHALEXIN 500 MG CAPSULE PO ×5 (00:09→20:52)
[2025-01-06] MEDS: HYDROcodone/acetaminophen (*CRX) 5-325 MG TABLET 1 TAB PO ×2 (03:22→20:52)
[2025-01-06] MEDS: hydrOXYzine HCL 25 MG TABLET 50 MG PO ×2 (03:23→20:51)
[2025-01-06] MEDS: SODIUM CHLORIDE 0.9% IV 1,000 ML 125 ML IV CONT (03:25)
[2025-01-06] MEDS: CYANOCOBALAMIN 1,000 MCG TABLET 1000 MCG PO (08:44)
[2025-01-06] MEDS: DESVENLAFAXINE SUCCINATE 50 MG TAB.ER.24H 100 MG PO (08:44)
[2025-01-06] MEDS: ACETAMINOPHEN 325 MG TABLET 650 MG PO (08:44)
[2025-01-06] MEDS: CYANOCOBALAMIN INJ 1,000 MCG/ML VIAL 1000 MCG IM (08:45)
[2025-01-06] MEDS: IRON SUCROSE COMPLEX 400 MG, IRON SUCROSE COMPLEX 100 MG in SODIUM CHLORIDE 0.9% IV 250 ML 78.57 MG IVPB (11:17)
--- NOTE | 2025-01-06 12:54 | WPDNEUROLOGY ---
Neurology EEG Report General Information Date of Study: 01/06/25 TEST EEG DIAGNOSIS Seizures CONDITION OF RECORDING awake, drowsy and asleep. EEG NUMBER [id number] CLINICAL HISTORY Patient states she was out for a walk couple of days ago when she lost consciousness she did bite her tongue and hit her head. EEG DESCRIPTION Background rhythm consists of low-voltage to medium voltage poorly organized 9 to 11 hertz per 2nd alpha admixed with low-voltage 15 to 21 hertz per 2nd beta activity. During drowsiness low-voltage and asymmetrical theta activity is noted. Bilateral symmetrical sleep activity is noted with symmetrical sleep spindles. Hyperventilation not done. Photic stimulation not done. Non paroxysmal. Focal. Lateralizing. IMPRESSION Abnormal record due to the presence of asymmetrical theta activity with no evidence of any paroxysmal discharge or sharp activity. These findings are suggestive of possibility of a focal structural lesion or seizure focus. Clinical correlation recommended.
--- NOTE | 2025-01-06 16:35 | P.PNIM_ITS ---
Progress Note: A&P Assessment and Plan (1) Seizure: Code(s): R56.9 - Unspecified convulsions Status: Acute Assessment and Plan: Unprovoked seizure Neuro check q.4 hours Brain MRI showed minimal diffusion restriction in the parasagittal area in which may indicate postictal phase with Large scalp hematoma ECHO normal biventricular EEG pending Neurology consulted (2) Hypokalemia: Code(s): E87.6 - Hypokalemia Status: Acute Assessment and Plan: Replenish (3) Anxiety and depression: Code(s): F41.9 - Anxiety disorder, unspecified; F32.A - Depression, unspecified Status: Acute Assessment and Plan: Continue home medication (4) Drug abuse: Code(s): F19.10 - Other psychoactive substance abuse, uncomplicated Status: Acute (5) Alcoholism in recovery: Code(s): F10.21 - Alcohol dependence, in remission Status: Acute (6) Anemia: Code(s): D64.9 - Anemia, unspecified Status: Acute Assessment and Plan: Patient hemoglobin dropped from 11.2 to 8.5 Isat 15, 500/1000 Hb 8.5 FOBT pending Plan Vitamin 12 Deficiency B12 182, on B12 replacement Chronic alcoholism continue CIWA protocol and folic acid and B1 DVT prophylaxis on Sq Lovenox Subjective Date/time seen: 01/06/25 16:35 Interval history: Comfortable at bedside EEG on going at the time of this encounter Review of Systems Review of Systems: 12 systems were reviewed and are negativ e except for as per HPI. All systems reviewed & are unremarkable except as noted in HPI and below ROS unobtainable: Yes unobtainable due to mental status Exam Narrative: General: Well-developed, nontoxic-appearing female in the semi-Bryant position in bed in no distress. Weight: 71.6 kg. BMI: 24.7. HEENT: Hematoma and laceration on the posterior left scalp. Wound has been sutured. There is dry blood around the wound. PERRL, EOMI. Sclera anicteric. Conjunctiva mildly injected. Moist mucous membranes. Left side of the tongue has mild bruising and some swelling. Neck: Supple. No midline vertebral tenderness. Respiratory: Lungs are clear to auscultation bilaterally. Cardiovascular: Regular rate and rhythm with S1-S2. Gastrointestinal: Abdomen is soft, nontender, and nondistended with positive bowel sounds. Skin: Warm and dry. Bruise on the right scapula. Extremities: No cyanosis, clubbing, or edema. Radial and pedal pulses intact. Neurological: Alert and oriented. Cranial nerves 2-12 are grossly intact. Speech is clear. No facial asymmetry. No gross focal deficits to casual conversation. Psychiatric: Pleasant and cooperative with appropriate mood and affect. Const: General: cooperative, well developed and alert Orientation/consciousness: patient oriented x3 HENMT: Head: atraumatic Mouth: Yes oropharynx normal Other: Eyes: Alignment and Position: position normal Pupils: Equal, round and reactive pupils present EOM: EOMs intact bilaterally Other: Afferent pupillary defect on the right eye Neck: Neck: supple Resp: Effort & Inspection: normal respiratory effort Neuro: General: patient oriented x3 Cranial nerves: Yes CN's II-XII intact bilaterally ( Except for afferent pupillary defect on the right side), Yes facial sensation intact/muscles of mastication intact, Yes Equal, round and reactive pupils present, Yes facial symmetry and Yes Midline tongue present Cognition (Neuro): normal cognition Speech: normal speech Motor exam (neuro): 5/5 motor strength present throughout Sensory Exam: normal sensation Coordination: [id number] test normal and Normal rapid alternating movements of the distal upper extremity present (Neuro) Other: knee reflexes were 2+/4 and ankle reflexes decreased. patient also has decreased vision on the right side. Extrem: General: normal to inspection Psych: Mental Status: mental status grossly normal Affect: normal affect Objective Data Vital Signs Vital Signs: Vital Signs - 24 hr 01/05/25 20:00 01/05/25 20:00 01/05/25 20:00 Temperature 97.9 F Pulse Rate 71 71 Respiratory Rate 20 20 Blood Pressure 133/66 Pulse Oximetry 100 100 Oxygen Delivery Room Air Fraction of Inspired Oxygen 21 01/05/25 20:00 01/06/25 00:00 01/06/25 00:00 Temperature Pulse Rate 71 73 Respiratory Rate Blood Pressure 133/66 Pulse Oximetry Oxygen Delivery Fraction of Inspired Oxygen 01/06/25 04:00 01/06/25 04:00 01/06/25 05:00 Temperature 96.6 F L Pulse Rate 76 70 Respiratory Rate 18 Blood Pressure 133/66 149/75 H Pulse Oximetry 99 Oxygen Delivery Fraction of Inspired Oxygen 01/06/25 08:00 01/06/25 08:00 01/06/25 08:00 Temperature 96.1 F L Pulse Rate 63 76 Respiratory Rate 18 Blood Pressure 137/76 Pulse Oximetry 99 98 Oxygen Delivery Room Air Fraction of Inspired Oxygen 01/06/25 09:27 01/06/25 09:28 01/06/25 12:00 Temperature 96.1 F L 96.1 F L Pulse Rate 76 91 73 Respiratory Rate 18 18 Blood Pressure 147/87 H 161/87 H Pulse Oximetry 98 98 Oxygen Delivery Fraction of Inspired Oxygen 01/06/25 14:00 01/06/25 16:00 Temperature 97.1 F L Pulse Rate 80 79 Respiratory Rate 20 Blood Pressure 141/92 H Pulse Oximetry 97 Oxygen Delivery Fraction of Inspired Oxygen Intake/Output Intake/Output: Intake & Output 01/03/25 01/04/25 01/05/25 01/06/25 23:59 23:59 23:59 23:59 Intake Total 1999 3651.3 3680 818 Balance 1999 3651.3 3680 818 Meds/Results Medications: Active Medications Generic Name Dose Route Start Last Admin Trade Name Freq PRN Reason Stop Dose Admin Acetaminophen 650 mg 01/03/25 17:18 01/06/25 08:44 Acetaminophen 325 Mg Tablet PO 650 mg Q4H PRN Administration Mild Pain (1-3) or Fever Hydrocodone Bitart/Acetaminophen 1 tab 01/03/25 22:54 01/06/25 03:22 Hydrocodone/Acetaminophen (*Crx) 5-325 Mg Tablet PO 1 tab Q6H PRN Administration Pain Rated 4-6 Cephalexin HCl 500 mg 01/03/25 18:00 01/06/25 11:18 Cephalexin 500 Mg Capsule PO 500 mg Q6HR KAYKAY Administration Cyanocobalamin 1,000 mcg 01/06/25 09:00 01/06/25 08:44 Cyanocobalamin 1,000 Mcg Tablet PO 1,000 mcg QAM KAYKAY Administration Cyanocobalamin 1,000 mcg 01/06/25 09:00 01/06/25 08:45 Cyanocobalamin Inj 1,000 Mcg/Ml Vial IM 1,000 mcg DAILY KAYKAY Administration Desvenlafaxine Succinate 100 mg 01/04/25 09:00 01/06/25 08:44 Desvenlafaxine Succinate 50 Mg Tab.Er.24h PO 100 mg DAILY KAYKAY Administration Hydroxyzine HCl 50 mg 01/04/25 00:03 01/06/25 03:23 Hydroxyzine Hcl 25 Mg Tablet PO 50 mg TID PRN Administration anxiety Lorazepam 2 mg 01/04/25 13:36 Lorazepam Inj (*Crx) 2 Mg/Ml Vial IV PUSH Q4H PRN Seizures Morphine Sulfate 2 mg 01/03/25 22:54 01/03/25 23:19 Morphine Sulfate (*Crx) 2 Mg/Ml Inj IV PUSH 2 mg Q4H PRN Administration Pain Rated 7-10 Ondansetron HCl 4 mg 01/03/25 17:18 Ondansetron Inj 4 Mg/2 Ml Vial IV PUSH Q4H PRN Nausea Perflutren Lipid Microsphere 0 ml 01/04/25 00:02 Perflutren Lipid Microspheres 1.5 Ml Vial Diluted To 10 Ml Total Volume IV PUSH 01/07/25 00:03 ONCE PRN adequate visualization Protocol Radiology Results: ITS Impressions Head CT 01/03/25 15:01 IMPRESSION: No acute intracranial findings. Large left occipital scalp hematoma. Chest X-Ray 01/03/25 15:20 IMPRESSION: No acute cardiopulmonary pathology. Cervical Spine CT 01/03/25 15:25 IMPRESSION: No acute osseous abnormality cervical spine. Multilevel degenerative disc disease. Brain MRI 01/04/25 14:47 IMPRESSION: 1. Possible minimal diffusion restriction in the parasagittal area is which may indicate postictal phase. Clinical correlation advised. 2. No enhancing lesions seen. 3. Large scalp hematoma in the left parieto-occipital area. Quality VTE Prophylaxis VTE prophylaxis: mechanical ordered
[2025-01-06 17:03] LABS: Haptoglobin 130 mg/dL (43-212)
[2025-01-07] VITALS (7 sets, daily range): BP systolic 125–151; BP diastolic 78–132; PULSE 68–106; RESP 12–18; TEMP 35.8–36.1; O2SAT 98–99
[2025-01-07] MEDS: CEPHALEXIN 500 MG CAPSULE PO ×2 (05:43→12:45)
[2025-01-07 05:55] LABS: Basophils Absolute Auto 0.1 K/mm3 (0.0-0.1); Basophils Percent Auto 0.7 % (0.2-1.2); Eosinophils Absolute Auto 0.2 K/mm3 (0-0.3); Eosinophils Percent Auto 2.2 % (0-4.4); Hematocrit 31.3 % (37.0-47.0); Hemoglobin 10.1 g/dL (12.0-15.0); Immature Granulocyte Absolute 0.02 K/mm3 (0.00-0.031); Immature Granulocyte Percent A 0.3 % (0-0.5); Lymphocytes Percent Auto 23.3 % (18.3-44.2); Mean Corpuscular HGB Conc 32.3 g/dl (32-36); Mean Corpuscular Hemoglobin 30.1 pg (26-34); Mean Corpuscular Volume 93.4 fl (80-100); Monocytes Absolute Auto 0.9 K/mm3 (0.1-0.6); Neutrophils Absolute Auto 4.2 K/mm3 (1.3-6.7); Neutrophils Percent Auto 60.5 % (45.5-73.1); Platelet Count Result 186 k/mm3 (150-375); Red Blood Count 3.35 M/mm3 (4.2-5.4); Red Cell Distribution Width 14.8 % (11.5-14.5); White Blood Count 6.9 K/mm3 (4.5-10.0)
[2025-01-07 06:06] LABS: Lactic Acid Reflex 0.8 mmol/L (0.7-2.0)
[2025-01-07 06:08] LABS: Alanine Aminotransferase 12 U/L (6-35); Albumin Level 3.9 g/dL (3.5-5.1); Alkaline Phosphatase 59 U/L (38-126); Anion Gap 6 mmol/L (4-12); Aspartate Amino Transferase 28 U/L (14-36); Bilirubin,Total 0.3 mg/dL (0.2-1.3); Blood Urea Nitrogen 5 mg/dL (7-17); Calcium 9.2 mg/dL (8.4-10.2); Carbon Dioxide 30 mmol/L (22-30); Chloride 101 mmol/L (98-107); Estimated CRCL calculation 97 ml/min; Estimated Glomerular Filt Rate > 60; Glucose 103 mg/dL (65-110); Magnesium 1.5 mg/dL (1.6-2.3); Potassium 3.6 mmol/L (3.4-5.0); Sodium 137 mmol/L (137-145)
[2025-01-07] MEDS: DESVENLAFAXINE SUCCINATE 50 MG TAB.ER.24H 100 MG PO (09:15)
[2025-01-07] MEDS: IRON SUCROSE COMPLEX 400 MG, IRON SUCROSE COMPLEX 100 MG in SODIUM CHLORIDE 0.9% IV 250 ML 78.6 MG IVPB (09:15)
[2025-01-07] MEDS: CYANOCOBALAMIN INJ 1,000 MCG/ML VIAL 1000 MCG IM (09:15)
[2025-01-07] MEDS: ENOXAPARIN 40 MG/0.4 ML SYRINGE SUB-Q (09:15)
[2025-01-07 12:01] LABS: IFOB Positive Control Positive; Immunochemical Fecal Occult Bl Negative (N)
[2025-01-07] MEDS: levETIRAcetam 1000MG/NACL100ML 1,000 MG/100 ML BAG 400 MG IVPB (12:45)
--- NOTE | 2025-01-07 13:03 | P.DS_ITS ---
DS: Admitting Diagnosis Discharge Date 01/07/25 Admitting Diagnosis Unresponsive. DS: Discharge Diagnosis Discharge Diagnosis (1) Anemia: Code(s): D64.9 - Anemia, unspecified Status: Acute (2) Seizure: Code(s): R56.9 - Unspecified convulsions Status: Acute DS: Summary Hospital Course Hospital Course: This is a very pleasant 59-year-old female with history of alcohol abuse (sober since August 2024 with 1 day of relapse last Sunday), depression, and anxiety who presented to the emergency department via EMS for evaluation after she was found unresponsive. In the ED: Documented vital signs on arrival include a blood pressure 146/84, pulse 107, respiratory rate 20. Labs are significant for WBC count of 11.6, hemoglobin 11.2, sodium 135, potassium 3.2, troponin less than 0.012. Urinalysis was positive for 2+ protein trace ketones. Drug screen was positive for opiates and benzodiazepines. Ethyl alcohol level was negative. Head CT showed no acute intracranial findings but did show a large left occipital scalp hematoma. Cervical spine CT showed no acute abnormalities and noted multilevel degenerative disc disease. Chest x-ray was without acute findings. Scalp laceration was sutured in the ED and her started on cephalexin after receiving a tetanus booster. She received 1 L of normal saline and 40 mEq of potassium chloride. She is being admitted in this setting for further treatment and evaluation. It appears patient had seizure and she noted she had a tongue bite. Also noted she had similar about 1 year ago. MRI showed possible minimal diffusion restrictioin in the parasasgittal area which may indicate postictal phase, EEG showed changes suggestive of focal structural lesion or seizure focus. Discussed with Dr deleon form neurology and patient was started on Keppra 750mg bid and will follow up outpatient. Also managed for B12 deficiency, b12 182, Hypomagnesemia, Anemia, iron deficiency and hypokalemia . Discharged on Subcut B12 1000mcg weekly x 4 weeks and follow up PCP for maintenance. Completed 1g of IV iron. Discharged on Mag oxide 400mg bid x 10 days, and K replaced. F/u with PCP in 3-5 days, F/u with neurology as instructed Time Spent with Patient Time attestation: Total time spent providing and/or coordinating discharge services: DS: Data Data Completed and Pending Labs on day of discharge: Labs from last 24 hours 01/07/25 01/06/25 01/05/25 05:46 11:37 05:24 WBC 6.9 RBC 3.35 L Hgb 10.1 L Hct 31.3 L MCV 93.4 MCH 30.1 MCHC 32.3 RDW 14.8 H Plt Count 186 MPV 10.0 Immature Gran % (Auto) 0.3 Neut % (Auto) 60.5 Lymph % (Auto) 23.3 [place] % (Auto) 13.0 H Eos % (Auto) 2.2 Baso % (Auto) 0.7 Lymph # (Auto) 1.60 [place] # (Auto) 0.9 H Eos # (Auto) 0.2 Baso # (Auto) 0.1 Abs Immat Gran (auto) 0.02 Absolute Neuts (auto) 4.2 Absolute Nucleated RBC 0.000 Nucleated RBC % 0.0 Haptoglobin 130 Sodium 137 Potassium 3.6 Chloride 101 Carbon Dioxide 30 Anion Gap 6 BUN 5 L Creatinine 0.50 L Estim Creat Clear Calc 97 Estimated GFR > 60 Glucose 103 Lactic Acid 0.8 Calcium 9.2 Magnesium 1.5 L Total Bilirubin 0.3 AST 28 ALT 12 Alkaline Phosphatase 59 Total Protein 7.0 Albumin 3.9 Stl Occult Blood (IFOB) Negative Discharge Plan Discharge Attending physician on discharge: Yakelin Patel Consulting providers: Angélica Deleon Discharging Clinician: Yakelin Patel Anticipated Discharge Date/Time: 01/07/25 12:51 Patient Disposition: Home Activity: as tolerated Diet: as tolerated Patient Instructions: Antibiotic Form Patient Language: Nigerian Stand Alone Forms: General Discharge Information Follow-up/Referrals: Angélica Deleon MD [Physician] - (F/u with neurology in 2 weeks ) UNKNOWN,DOCTOR [Primary Care Provider] - (F/u with PCP in 3-5 days ) Discharge Medications: New cyanocobalamin (vitamin B-12) 1,000 mcg/mL kit 1,000 mcg subcut WEEKLY 7 Days Qty: 4 0RF magnesium 250 mg tablet 250 mg PO BID 10 Days Qty: 20 0RF folic acid 1 mg tablet 1 mg PO DAILY 30 Days Qty: 30 0RF levetiracetam [Keppra] 750 mg tablet 750 mg PO BID 30 Days Qty: 60 1RF thiamine HCl (vitamin B1) 100 mg tablet 100 mg PO DAILY 30 Days Qty: 30 0RF Continued hydroxyzine HCl 50 mg tablet 50 mg PO TID PRN (Reason: anxiety) desvenlafaxine succinate 100 mg tablet extended release 24 hr 100 mg PO DAILY naltrexone 50 mg tablet 50 mg PO DAILY Date of admission: 01/05/25 10:33 Primary Care Provider: UNKNOWN,DOCTOR Admitting Provider: Marianne Pop Attending physician on admission: Marianne Pop Condition: Improved
[2025-01-07 23:54] LABS: Vitamin B6 6.7 ng/mL (2.1-21.7)
[2025-01-09 07:53] LABS: Vitamin B1 9 nmol/L (8-30)
--- NOTE | 2025-01-14 10:04 | PC.NURSE ---
Received call from patient stating she did not receive a script for her syringes/needles to inject her B12. Spoke with pharmacist at [place] [facility] regarding what to order for SQ injection. 3 ml syringes and 5/8 inch needle ordered. #30 of each with 3 refills. Faxed order to pharmacy. Called pt.
== END 2025-01-07 15:05 | disposition home or self-care (01) | DRG 53 ==
LOC: ANHED 14:35 → ANH3MEDSUR 17:59
PROVIDERS: General Practice; Physician Assistant; Psychiatry & Neurology Neurology; Admitting Provider Family Medicine; Emergency Provider Emergency Medicine; Visit Provider Internal Medicine
DX: R56.9 Unspecified convulsions (principal); S01.01XA Laceration without foreign body of scalp, initial encounter; W19.XXXA Unspecified fall, initial encounter; D64.9 Anemia, unspecified; E87.6 Hypokalemia; E53.8 Deficiency of other specified B group vitamins; F10.21 Alcohol dependence, in remission; F32.A Depression, unspecified; F41.9 Anxiety disorder, unspecified; F19.10 Other psychoactive substance abuse, uncomplicated; H54.7 Unspecified visual loss
CPT/HCPCS: 12002; 36415; 36600; 70450; 70553; 71045; 72125; 80053; 80307; 81001; 82077; 82140; 82247; 82248; 82274; 82306; 82550; 82607; 82728; 82746; 82805; 83010; 83540; 83550; 83605; 83615; 83735; 84207; 84425; 84443; 84466; 84484; 85018; 85025; 85027; 85046; 85610; 85730; 86880; 90471; 90715; 93005; 93306; 95816; 96361; 96374; 96375; 96376; 99285; A9270; A9579; G0378; G0379; J1650; J1756; J1953; J2004; J2270; J2405; J3420; J7030; J7050